=== PATIENT | female | born 1945 | race Caucasian/White ===

== ENCOUNTER 2018-05-05 13:15 | Emergency (ER) | payer MEDICARE ==
[2018-05-05 14:11] LABS: #Eosinphils 0.4 thou/uL (0.0-0.7); #Lymphocytes 1.4 thou/uL (1.20-3.40); #Monocytes 0.3 thou/uL (0.11-0.59); #Neutrophils 2.9 thou/uL (1.40-6.50); %Basophils 0.5 % (0.0-1.0); %Eosinophils 8.3 % (0.0-10.0); %Lymphocytes 27.7 % (21.0-51.0); %Monocytes 5.9 % (0.0-10.0); %Neutrophils 57.6 % (42.0-75.0); Mean Corpuscular HGB CONC 32.5 g/dL (32.0-36.0); Mean Corpuscular Hemoglobin 28.6 pg (27.0-31.0); Mean Platelet Volume 6.6 fL (7.4-10.4); Platelet Count 187 thou/uL (130-400); RBC Distribution Width 12.5 % (11.5-14.5); Red Blood Cell (RBC) Count 4.21 mill/uL (4.20-5.40); White Blood Cell (WBC) Count 5.1 thou/uL (4.8-10.8)
[2018-05-05 14:33] LABS: ALT (SGPT) 9 U/L (8-55); AST (SGOT) 18 U/L (5-34); Alkaline Phosphatase 105 U/L (40-150); Anion Gap 12 mmol/L (10-20); BUN (Urea Nitrogen) 12 mg/dL (9.8-20.1); Bilirubin, Total 0.8 mg/dL (0.2-1.2); CK (CPK) 47 U/L (29-168); Calc. Creatinine Clearance 0 mL/min (70-130); Calcium 9.2 mg/dL (7.8-10.44); Carbon Dioxide 27 mmol/L (23-31); Chloride 102 mmol/L (98-107); Estimated GFR-MDRD 62; Globulin 3.2 g/dL (2.4-3.5); Glucose 108 mg/dL (83-110); Lipase 7 U/L (8-78); Potassium 4.2 mmol/L (3.5-5.1); Protein, Total 7.2 g/dL (6.0-8.3); Sodium 137 mmol/L (136-145)
[2018-05-05] MEDS ORDERED: Pantoprazole 40 MG VIAL ONE (15:20)
[2018-05-05] MEDS ORDERED: Ondansetron PF 4 MG/2 ML Vial ONE (15:20)
[2018-05-05] MEDS ORDERED: Morphine 2 MG/ML SYRINGE ONE ×2 (15:22)
--- NOTE | 2018-05-05 15:25 | RAD ---
UPRIGHT PORTABLE CHEST ONE VIEW: HISTORY: A 72-year-old female with a history of epigastric abdominal pain. COMPARISON: 02/03/2017 FINDINGS: Monitor leads overly the chest. Heart size is within normal limits. Lungs are clear of acute proces s. IMPRESSION: No acute intrathoracic disease. POS: [facility]
--- NOTE | 2018-05-05 15:36 | CT ---
ABDOMEN AND PELVIC CT SCAN WITHOUT IV CONTRAST 05/05/19 HISTORY: 72-year-old female with history of pain, prior cholecystectomy, appendectomy and hysterectomy, epigas tric abdominal pain. The lung bases are clear. Postop cholecystectomy. The visualized liver, pancreas, spleen, adrenal gla nds are unremarkable as evaluated without IV contrast. No evidence for renal calculus or acute obs truction. Status post appendectomy and hysterectomy. No large or small bowel obstruction. No abscess or abnormal fluid collection. Multilevel lumbar spinal stenosis. IMPRESSION: No significant acute process in the abdomen or pelvis. Status post cholecystectomy, hysterectomy and appendectomy. No renal calculus or obstruction. No other acute process. POS: [facility]
== END 2018-05-05 19:22 | disposition home or self-care (01) ==
LOC: ERS 13:15
DX: R10.13 Epigastric pain (principal); J45.909 Unspecified asthma, uncomplicated; I10 Essential (primary) hypertension; R73.03 Prediabetes; F41.9 Anxiety disorder, unspecified; F32.9 Major depressive disorder, single episode, unspecified; Z86.73 Personal history of transient ischemic attack (TIA), and cerebral infarction without residual deficits
CPT/HCPCS: 36415; 71045; 74176; 80053; 82550; 83690; 84484; 85025; 93005; 96361; 96374; 96375; C9113; J2270; J2405

== ENCOUNTER 2018-07-19 11:18 | Emergency (ER) | payer MEDICARE ==
[2018-07-19 12:05] LABS: Bilirubin Negative (Negative); Blood, Urine Small (Negative); Clarity CLOUDY (Clear); Glucose, Urine (Dipstick) Negative (Negative); Leukocyte Large (Negative); Nitrite Positive (Negative); Protein, Urine (Dipstick) Negative (Neg-Trace); Urobilinogen 0.2 mg/dL (0.2-1.0)
[2018-07-19 12:06] LABS: Bacteria/HPF None Seen HPF (None Seen); Hyaline Casts/LPF 0-3 HYALINE CAST LPF (0-3 Hyaline); Pathc Cast-AUWi Flag 0.72 (0-2.49); RBC/HPF 0-3 HPF (0-3); Squamous Epithelial None Seen HPF (0-3)
[2018-07-19 12:11] LABS: Specific Gravity, Urine 1.004 (1.002-1.036)
--- NOTE | 2018-07-19 12:18 | RAD ---
PORTABLE CHEST: Date: 07/19/18 HISTORY: Cough. COMPARISON: 05/05/18 exam. FINDINGS: Heart size appears borderline to slightly enlarged. There are atherosclerotic changes of the aorta. T he lungs are clear of any infiltrative process. IMPRESSION: Borderline heart size. No acute findings. POS: [facility]
== END 2018-07-19 12:36 | disposition home or self-care (01) ==
LOC: ERS 11:18
DX: N39.0 Urinary tract infection, site not specified (principal); R05 Cough; J45.909 Unspecified asthma, uncomplicated; I10 Essential (primary) hypertension; F41.9 Anxiety disorder, unspecified; F32.9 Major depressive disorder, single episode, unspecified; Z79.82 Long term (current) use of aspirin; Z79.899 Other long term (current) drug therapy
CPT/HCPCS: 71045; 81003; 81015; 87077; 87086; 87186

== ENCOUNTER 2018-08-10 16:42 | Inpatient (IN) | payer MEDICARE ==
[2018-08-10] MEDS ORDERED: Ondansetron PF 4 MG/2 ML Vial ONE (16:50)
[2018-08-10] MEDS ORDERED: Acetaminophen 500 MG TAB ONE (19:23)
[2018-08-10 20:17] VITALS: BMI 23.1
--- NOTE | 2018-08-11 02:54 | HP ---
PRIMARY CARE DOCTOR: Maite Caraballo. CODE STATUS: Full code. TIME OF EVALUATION: 10:40 p.m. CHIEF COMPLAINT: Fever, chills. HISTORY OF PRESENT ILLNESS: This is a 73-year-old female patient with past medical history of hypertension, hyperlipidemia, CVA, chronic bronchitis, peripheral neuropathy, chronic hip pain, vitamin D deficiency, gait instability, hallucination, came to the hospital after having change in mental status, also worsening cough, shortness of breath, no clear triggers, no alleviating factors, symptoms were moderate. The patient is not improving. Symptoms have been present for the past few days. Sent to the hospital by caregiver. Today, symptoms were worse. REVIEW OF SYSTEMS: Unable to fully obtain, the patient is confused. She has stated I do not recall to my questions. KNOWN ALLERGIES: Chlorpromazine, codeine, iodine, oxycodone, Thorazine. REPORTED MEDICATIONS: 1. Gabapentin. 2. Amlodipine. 3. Ranitidine. 4. Aspirin. 5. Duloxetine. 6. Oxybutynin. 7. Ondansetron. 8. Atorvastatin. 9. Isosorbide. 10. Meloxicam. 11. Pantoprazole. 12. Trazodone. 13. Bactrim DS. 14. Macrobid. PAST MEDICAL HISTORY: As mentioned in HPI. PAST SURGICAL HISTORY: Uterine suspension, cervical surgery, hysterectomy, bladder suspension x3, knee surgery x2, breast biopsy, heart catheterization, varicose veins removal, spinal surgery, ankle surgery, and cataract. PSYCHIATRIC HISTORY: Anxiety and depression. FAMILY HISTORY: Reviewed, noncontributory for current presentation. SOCIAL HISTORY: No alcohol. No drugs. No smoking history. PHYSICAL EXAMINATION: VITAL SIGNS: On presentation, blood pressure 133/66, with heart rate 85, respiratory rate was 17, temperature 99.6. Pain was 3/10. Oxygen saturation was 95 on room air. GENERAL APPEARANCE: The patient is alert and is oriented. HEENT: Normal conjunctivae. Moist oral mucosa, anicteric. NECK: No JVD. RESPIRATORY: Bilateral air entry. No rales. No wheezing. Symmetric expansion. The patient has some rales on the right side. CARDIOVASCULAR: Normal rate, regular rhythm. No murmurs. No gallops. No edema. ABDOMEN: Soft. Normal bowel sounds. MUSCULOSKELETAL: Baseline range of motion and strength. No tenderness. SKIN: Warm and intact. No rash. No redness. Peripheral pulses are present. Capillary refill seems to be intact. NEUROLOGIC: No evidence of any new focal weakness. Baseline speech. Cranial nerves seem to be intact. PSYCHIATRIC: The patient is in good mood. No anxiety. Optimal judgment. LABORATORY DATA: Reviewed. The patient has white count 10.9, hemoglobin 15.1, MCV 88.5, and platelet count . Coagulation was not done. Chemistry; potassium was 3.7, sodium 138, chloride 98, carbon dioxide 29, anion gap 15, BUN 7, GFR was 63, with creatinine 0.8, glucose 127, and lactic acid was 1.9. LFTs were normal. Troponin 0.033. Urine was done, which was negative. Urine tox was done, which was negative. ASSESSMENT AND PLAN: The patient is placed in the hospital with following medical problems. 1. Right lower lobe pneumonia. The patient has fever, cough, increased sputum, confusion. We will place the patient on antibiotics, we will monitor, we will adjust the treatment as per the patient's clinical response, we will follow cultures, we will adjust treatment as per sensitivity. 2. Mildly elevated troponin, dgn-SD-tyxeukkun myocardial infarction type 2, secondary to underlying infection, we will trend troponins, monitor on tele, we will treat accordingly. 3. Acute encephalopathy. The patient has confusion that was worsened this morning and that is the reason why she was sent to hospital, could be due to underlying infection, we will monitor, we will give support as inpatient. We will treat the underlying condition. 4. Hyperlipidemia, reconcile home medications, low-cholesterol diet is advised. 5. Hypertension that is uncontrolled, the patient had an episode of blood pressure of 145 systolic, reconcile home medications, we will adjust treatment as needed. 6. Deep venous thrombosis prophylaxis. Job ID: [id number] [facility]
[2018-08-11 03:04] LABS: Troponin I Less than 0.010 ng/mL (< 0.028)
[2018-08-11] MEDS: PROVENTIL INHALER 6.7 G (200 INHALATIONS) INH PRN ×2 (03:50→09:00)
[2018-08-11 05:11] LABS: #Eosinphils 1.1 thou/uL (0.0-0.7); #Lymphocytes 0.9 thou/uL (1.20-3.40); #Monocytes 0.6 thou/uL (0.11-0.59); #Neutrophils 5.8 thou/uL (1.40-6.50); %Basophils 0.1 % (0.0-1.0); %Eosinophils 13.1 % (0.0-10.0); %Lymphocytes 11.2 % (21.0-51.0); %Monocytes 6.5 % (0.0-10.0); Hemoglobin 12.3 g/dL (12.0-16.0); Mean Corpuscular HGB CONC 31.9 g/dL (32.0-36.0); Mean Corpuscular Hemoglobin 28.9 pg (27.0-31.0); Mean Corpuscular Volume 90.6 fL (78.0-98.0); Mean Platelet Volume 7.3 fL (7.4-10.4); Platelet Count 154 thou/uL (130-400); RBC Distribution Width 12.7 % (11.5-14.5); Red Blood Cell (RBC) Count 4.26 mill/uL (4.20-5.40); White Blood Cell (WBC) Count 8.3 thou/uL (4.8-10.8)
[2018-08-11 05:34] LABS: Anion Gap 11 mmol/L (10-20); BUN (Urea Nitrogen) 11 mg/dL (9.8-20.1); Calc. Creatinine Clearance 51 mL/min (70-130); Calcium 8.7 mg/dL (7.8-10.44); Carbon Dioxide 29 mmol/L (23-31); Chloride 99 mmol/L (98-107); Estimated GFR-MDRD 52; Glucose 136 mg/dL (83-110); Potassium 3.2 mmol/L (3.5-5.1); Sodium 136 mmol/L (136-145)
[2018-08-11] MEDS: Enoxaparin Sodium 40 MG/0.4 ML SYRINGE SC SCH (09:42)
[2018-08-11] MEDS: Ondansetron PF 4 MG/2 ML Vial IVP PRN (09:43)
[2018-08-11] MEDS: Acetaminophen 325 MG TAB PO PRN ×2 (09:43→20:12)
[2018-08-11] MEDS ORDERED: Gabapentin 300 MG CAP PO SCH (10:15)
--- NOTE | 2018-08-11 11:30 | PQF ---
CLINICAL DOCUMENTATION IMPROVEMENT CLARIFICATION FORM: ICD-10 Updated PLEASE DO AN ADDENDUM TO THE PROGRESS NOTE WITH ANY DOCUMENTATION UPDATES OR ADDITIONS AND CARRY THROUGH TO DC SUMMARY. THANK YOU. DATE: 08/11/18 ATTN: DR. SANTIZO Please exercise your independent, professional judgment in responding to the clarification form. Clinical indicators are provided on the bottom of this form for your review Please check appropriate box(s): [ X ] Encephalopathy: Type: [ X ] Acute [ ] Subacute [ ] Chronic Etiology: [ ] Hypertensive [ X] Metabolic [X ] Toxic [ ] Hepatic with Coma [ ] Hepatic w/o Coma [ ] Hypoxic [ ] Septic [ ] Drug induced: [ ] Unspecified [ ] in the setting of underlying dementia [ ] Other (please specify) [ ] Transient Alteration of Awareness [ ] Other diagnosis [ ] Unable to determine In addition, please specify: Present on Admission (POA): [X ] Yes [ ] No [ ] Unable to determine For continuity of documentation, please document condition throughout progress notes and discharge summary. Thank You. CLINICAL INDICATORS - SIGNS / SYMPTOMS / LABS ER NOTE: "ALTERED MENTAL STATUS" H&P: "ACUTE ENCEPHALOPATHY" RISKS: PNEUMONIA TREATMENT: IV LEVAQUIN (STARTED 08/11) (This form is maintained as a part of the permanent medical record) 2014 [email or web address]. All Rights Reserved INO [email or web address] Office: [phone] [facility]
--- NOTE | 2018-08-11 14:38 | PDOC.PN ---
- Subjective Encounter Start Date: 08/11/18 Encounter Start Time: 14:36 Subjective: Feeling better. very hard of hearing. -: Denied fever and chest pain. Admitted to dysuria. - Objective Resuscitation Status - Order Detail: 08/10/18 22:35 Resuscitation Status Routine Resuscitation Status: FULL: Full Resuscitation Vital Signs & Weight: Vital Signs (12 hours) Temp Pulse Resp BP Pulse Ox 08/11/18 12:39 98.5 F 76 16 150/70 H 99 08/11/18 09:00 59 L 16 08/11/18 08:25 94 L 08/11/18 07:25 98.3 F 57 L 12 131/58 L 94 L 08/11/18 03:50 64 16 94 L Weight Weight 147 lb 4.8 oz I&O: 08/10/18 08/11/18 08/12/18 06:59 06:59 06:59 Intake Total 600 Balance 600 Result Diagrams: 08/11/18 04:34 08/11/18 04:34 Phys Exam - Physical Examination afebrile. HEENT: PERRLA, moist MMs Neck: no JVD, supple Respiratory: no rhonchi fair air entry. Decreased at right base with transmitted sound. Cardiovascular: RRR Gastrointestinal: soft, non-tender, no distention, positive bowel sounds Musculoskeletal: no edema, pulses present Neurological: moves all 4 limbs Cranial nerves are intact. hard of hearing limited assessment Dx/Plan (1) Acute metabolic encephalopathy Code(s): G93.41 - METABOLIC ENCEPHALOPATHY Status: Acute Comment: Present on admission. (2) Pneumonia Code(s): J18.9 - PNEUMONIA, UNSPECIFIED ORGANISM Status: Acute Qualifiers: Laterality: right Lung location: lower lobe of lung (3) Hypokalemia Code(s): E87.6 - HYPOKALEMIA Status: Acute (4) CAD (coronary artery disease) Code(s): I25.10 - ATHSCL HEART DISEASE OF [place] CORONARY ARTERY W/O ANG PCTRS Status: Chronic (5) Dyslipidemia Code(s): E78.5 - HYPERLIPIDEMIA, UNSPECIFIED Status: Chronic (6) GERD (gastroesophageal reflux disease) Code(s): K21.9 - GASTRO-ESOPHAGEAL REFLUX DISEASE WITHOUT ESOPHAGITIS Status: Chronic (7) Hypertension Code(s): I10 - ESSENTIAL (PRIMARY) HYPERTENSION Status: Chronic (8) Peripheral neuropathy Code(s): G62.9 - POLYNEUROPATHY, UNSPECIFIED Status: Chronic - Plan Continue antibiotic. -: Replete serum potassium. get serum magnesium -: Restart neurontin and imdur. -: get UA with reflex to culture. -: Follow troponin * .
[2018-08-11 15:25] LABS: Troponin I Less than 0.010 ng/mL (< 0.028)
[2018-08-11 15:53] LABS: Bilirubin Negative (Negative); Blood, Urine Negative (Negative); Clarity CLEAR (Clear); Glucose, Urine (Dipstick) Negative (Negative); Leukocyte Trace (Negative); Nitrite Negative (Negative); Protein, Urine (Dipstick) Negative (Neg-Trace); Specific Gravity, Urine 1.014 (1.002-1.036)
[2018-08-11 15:56] LABS: Bacteria/HPF None Seen HPF (None Seen); Hyaline Casts/LPF 0-3 HYALINE CAST LPF (0-3 Hyaline); Pathc Cast-AUWi Flag 0.54 (0-2.49); Squamous Epithelial 0-3 HPF (0-3)
[2018-08-11 15:58] LABS: Yeast-AUWi Flag 36.1 (0-25.0)
[2018-08-11] MEDS: Potassium Chloride 20 MEQ TAB PO SCH ×2 (16:17→20:12)
[2018-08-11 16:19] LABS: RBC/HPF 0-3 HPF (0-3); Yeast-All Forms None Seen HPF (None Seen)
[2018-08-11 16:20] LABS: Urine Culture Reflex Yes Yes
[2018-08-11] MEDS: Atorvastatin Calcium 40 MG TAB PO SCH (20:12)
[2018-08-11] MEDS: Gabapentin 300 MG CAP PO SCH (20:12)
[2018-08-11] MEDS: Oxybutynin 5 MG TAB PO SCH (20:13)
[2018-08-11] MEDS: Ondansetron ODT 4 MG TAB PO PRN (21:22)
[2018-08-12] MEDS: Acetaminophen 325 MG TAB PO PRN ×3 (00:27→22:58)
[2018-08-12 07:02] LABS: Anion Gap 14 mmol/L (10-20); BUN (Urea Nitrogen) 12 mg/dL (9.8-20.1); Calc. Creatinine Clearance 63 mL/min (70-130); Calcium 8.9 mg/dL (7.8-10.44); Carbon Dioxide 24 mmol/L (23-31); Chloride 106 mmol/L (98-107); Estimated GFR-MDRD 67; Glucose 97 mg/dL (83-110); Magnesium 2.1 mg/dL (1.6-2.6); Potassium 4.5 mmol/L (3.5-5.1); Sodium 139 mmol/L (136-145)
[2018-08-12] MEDS: Ondansetron PF 4 MG/2 ML Vial IVP PRN (08:58)
[2018-08-12] MEDS: Aspirin 81 mg Enteric Coated Tablet PO SCH (09:03)
[2018-08-12] MEDS: Oxybutynin 5 MG TAB PO SCH ×2 (09:04→20:02)
[2018-08-12] MEDS: Gabapentin 300 MG CAP PO SCH ×2 (09:04→20:01)
[2018-08-12] MEDS: Enoxaparin Sodium 40 MG/0.4 ML SYRINGE SC SCH (09:05)
--- NOTE | 2018-08-12 12:41 | PDOC.PN ---
- Subjective Encounter Start Date: 08/12/18 Encounter Start Time: 12:39 Subjective: feeling better. Reportedly recurrent falls at home. taking fentanyl patch -: for severe neuropathy and pain. denied fever, SOB. coughing up sputum - Objective Resuscitation Status - Order Detail: 08/10/18 22:35 Resuscitation Status Routine Resuscitation Status: FULL: Full Resuscitation Vital Signs & Weight: Vital Signs (12 hours) Temp Pulse Resp BP Pulse Ox 08/12/18 11:52 98.1 F 78 18 139/75 98 08/12/18 10:15 77 20 155/79 H 98 08/12/18 08:00 95 08/12/18 07:17 98.5 F 63 18 148/76 H 95 08/12/18 04:00 98.0 F 58 L 18 149/79 H 97 Weight Admit Weight 147 lb 4.8 oz Weight 147 lb 4.8 oz I&O: 08/11/18 08/12/18 08/13/18 06:59 06:59 06:59 Intake Total 1600 Balance 1600 Result Diagrams: 08/11/18 04:34 08/12/18 05:25 Phys Exam - Physical Examination Constitutional: NAD afebrile. No distress Neck: no JVD, supple Respiratory: no wheezing, no rhonchi fair air entry bilaterally with few adventitial sound right base posterior Cardiovascular: RRR Gastrointestinal: soft, no distention, positive bowel sounds Musculoskeletal: no edema, pulses present Neurological: non-focal, moves all 4 limbs Psychiatric: A&O x 3 Deviation from normal: emotionally labile Dx/Plan (1) Pneumonia Code(s): J18.9 - PNEUMONIA, UNSPECIFIED ORGANISM Status: Acute Qualifiers: Laterality: right Lung location: lower lobe of lung (2) Acute metabolic encephalopathy Code(s): G93.41 - METABOLIC ENCEPHALOPATHY Status: Acute Comment: Present on admission. (3) Hypokalemia Code(s): E87.6 - HYPOKALEMIA Status: Acute (4) CAD (coronary artery disease) Code(s): I25.10 - ATHSCL HEART DISEASE OF [place] CORONARY ARTERY W/O ANG PCTRS Status: Chronic (5) Dyslipidemia Code(s): E78.5 - HYPERLIPIDEMIA, UNSPECIFIED Status: Chronic (6) GERD (gastroesophageal reflux disease) Code(s): K21.9 - GASTRO-ESOPHAGEAL REFLUX DISEASE WITHOUT ESOPHAGITIS Status: Chronic (7) Hypertension Code(s): I10 - ESSENTIAL (PRIMARY) HYPERTENSION Status: Chronic (8) Peripheral neuropathy Code(s): G62.9 - POLYNEUROPATHY, UNSPECIFIED Status: Chronic (9) Sepsis Code(s): A41.9 - SEPSIS, UNSPECIFIED ORGANISM Status: Acute Comment: Present on admission. Resolved. (10) Anxiety and depression Code(s): F41.9 - ANXIETY DISORDER, UNSPECIFIED; F32.9 - MAJOR DEPRESSIVE DISORDER, SINGLE EPISODE, UNSPECIFIED Status: Chronic (11) Physical deconditioning Code(s): R53.81 - OTHER MALAISE Status: Acute (12) Recurrent falls Code(s): R29.6 - REPEATED FALLS Status: Acute - Plan Restart fentanyl patch and cymbalta -: Continue IV antibiotics. -: consult PT/OT. -: increase activity -: Consult case mgt to help with discharge planning * .
[2018-08-12] MEDS: Atorvastatin Calcium 40 MG TAB PO SCH (20:01)
[2018-08-13] MEDS: Aspirin 81 mg Enteric Coated Tablet PO SCH (08:18)
[2018-08-13] MEDS: Gabapentin 300 MG CAP PO SCH (08:18)
[2018-08-13] MEDS: Oxybutynin 5 MG TAB PO SCH (08:18)
[2018-08-13] MEDS: Enoxaparin Sodium 40 MG/0.4 ML SYRINGE SC SCH (08:18)
[2018-08-13] MEDS ORDERED: DULoxetine 30 MG CAP PO SCH (09:00)
[2018-08-13 11:34] VITALS: BP 153/83; TEMP 98.7
--- NOTE | 2018-08-13 11:45 | DIS ---
DATE OF ADMISSION: 08/11/2018 DATE OF DISCHARGE: 08/13/2018 DISCHARGE DIAGNOSES: 1. Right lower lobe pneumonia. 2. Sepsis from above. 3. Acute encephalopathy. 4. Chronic obstructive pulmonary disease with acute exacerbation, present on admission. 5. Hypertension. 6. Hyperlipidemia. 7. Peripheral neuropathy. 8. Physical deconditioning. 9. Hypokalemia. 10. History of coronary artery disease. 11. Gait instability. 12. History of recurrent falls. 13. Gastroesophageal reflux disease. HOSPITAL COURSE: A 73-year-old female with history of COPD, severe peripheral neuropathy associated with gait instability and recurrent falls, who was admitted due to acute mental status change of hallucination and confusion associated with worsening cough and shortness of breath. The patient was febrile on presentation with a temperature of 102. Chest x-ray showed right lower lobe infiltrate. Impression of acute encephalopathy and sepsis from right lower lobe pneumonia was made and the patient was started on appropriate antibiotic therapy with IV Levaquin. She also was treated with IV fluids and other treatments with improvement in condition. The patient never really required oxygen supplementation. Shortness of breath and hallucination and mental status improved and patient was back to baseline. Given history of recurrent falls and gait instability, the patient was felt to be in need of home health, PT and RN and this was arranged. PHYSICAL EXAMINATION: VITAL SIGNS: Temperature 98.8, pulse 60, respiratory rate 19, and SpO2 99% on room air, and blood pressure 163/83. GENERAL: Elderly female, in no obvious distress. Afebrile, anicteric, and acyanotic. HEENT: Normocephalic and atraumatic. Pupils are equal and reacting to light. Oral mucosa is moist. CARDIOVASCULAR: Regular rhythm and rate. Normal. heart sounds 1 and 2. RESPIRATORY: Fair air entry bilaterally with some transmitted sounds. No obvious crackle or rhonchi was appreciated. There is no use of accessory muscles. GI: Abdomen is full, soft, nontender, and nondistended with normal bowel sounds. EXTREMITIES: Grossly normal looking, atraumatic with no obvious edema or erythema. NEUROLOGIC: Conscious and alert, oriented x3 with appropriate mental status. Memory lapse is noted. The patient is ambulant with slow gait. She however required a walker. DISCHARGE CONDITION: Improved. DISCHARGE FOLLOWUP: The patient is to follow with PCP in 1 week. DISCHARGE MEDICATIONS: 1. Amlodipine 5 mg p.o. daily. 2. Aspirin 81 mg p.o. daily. 3. Lipitor 40 mg p.o. daily at bedtime. 4. Cymbalta 30 mg p.o. daily. 5. Fluticasone salmeterol (Advair) 1 to 2 puffs inhalation b.i.d. 6. Gabapentin 600 mg p.o. b.i.d. 7. Oxybutynin chloride 5 mg p.o. b.i.d. 8. Protonix 40 mg p.o. b.i.d. 9. Trazodone 75 mg p.o. at bedtime. 10. Fentanyl patch 25 mcg every three days. 11. Isosorbide mononitrate 30 mg p.o. daily. 12. Levofloxacin 750 mg p.o. daily for 5 days. Discharge took 38 minutes. Job ID: [id number]
[2018-08-13] MEDS ORDERED: Amlodipine 5 MG TAB PO SCH (12:30)
[2018-08-13] MEDS: Ondansetron ODT 4 MG TAB PO PRN (13:02)
[2018-08-14] MEDS ORDERED: Amlodipine 5 MG TAB PO SCH (09:00)
== END 2018-08-13 14:34 | disposition home health service (06) | DRG 871 ==
LOC: ERS 16:42 → 2SW 20:00 → OBSVTOIN 08-11 00:08 → T4-A 08-11 14:15
PROVIDERS: ADMIT Emergency Medicine; ATTEND Emergency Medicine
DX: A41.9 Sepsis, unspecified organism (principal); I21.A1 Myocardial infarction type 2; G93.41 Metabolic encephalopathy; J18.9 Pneumonia, unspecified organism; E78.5 Hyperlipidemia, unspecified; I10 Essential (primary) hypertension; J42 Unspecified chronic bronchitis; G62.9 Polyneuropathy, unspecified; G89.29 Other chronic pain; M25.559 Pain in unspecified hip; E55.9 Vitamin D deficiency, unspecified; K21.9 Gastro-esophageal reflux disease without esophagitis; F41.9 Anxiety disorder, unspecified; F32.9 Major depressive disorder, single episode, unspecified; R29.6 Repeated falls; E87.6 Hypokalemia; I25.10 Atherosclerotic heart disease of native coronary artery without angina pectoris; M54.2 Cervicalgia; M25.511 Pain in right shoulder; Z79.1 Long term (current) use of non-steroidal anti-inflammatories (NSAID); Z86.73 Personal history of transient ischemic attack (TIA), and cerebral infarction without residual deficits; Z79.82 Long term (current) use of aspirin; Z79.899 Other long term (current) drug therapy; Z90.710 Acquired absence of both cervix and uterus
CPT/HCPCS: 36415; 80048; 81001; 83605; 83735; 84484; 85025; 87077; 87086; 87186; 87804; 96374; J1650; J1956; J2405; Q0162

== ENCOUNTER 2019-02-07 09:05 | Outpatient (CLI) | payer MEDICARE ==
--- NOTE | 2019-02-07 12:25 | CT ---
CT ABDOMEN AND PELVIS WITH CONTRAST: HISTORY: Change in bowel habits and weight loss. COMPARISON: CT abdomen and pelvis without contrast 05/05/2018. FINDINGS: The lung bases are clear. No pericardial effusion. Prior cholecystectomy. The liver and spleen are unremarkable. 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 Normal proximal small bowel rotation. No liver mass. No aneurysmal dilatation of the aorta which has moderate atherosclerotic plaque. 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 The narrowing was approximately 50-75% narrowing. The superior mesenteric artery is patent. Mild hyperenhancement of the mucosa, urinary bladder, which is thickened suggesting cystitis. No abn ormal mass is appreciated. No dilated loops of large or small bowel. No hydronephrosis. No abnormal renal enhancement. Adrena l gland is unremarkable. Moderate to severe facet arthrosis of L2-L5. Narrowing of the intraspinous space of L2-L5 with sclerosis and subcortical cyst formation. Severe bilateral hip degenerative changes, slightly worse on the left. IMPRESSION: 1. 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 2. Mucosal hyperenhancement of the urinary bladder which is thickened suggesting cystitis. 3. 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 4. Pancreatic body parenchymal atrophy can be seen with prior bouts of pancreatitis. POS: [facility]
== END 2019-02-07 09:06 | disposition home or self-care (01) ==
LOC: CT 09:05
PROVIDERS: ATTEND Physician Assistant Medical
DX: R19.4 Change in bowel habit (principal); R63.4 Abnormal weight loss; R10.9 Unspecified abdominal pain; R11.2 Nausea with vomiting, unspecified; I77.4 Celiac artery compression syndrome; N32.89 Other specified disorders of bladder; I72.8 Aneurysm of other specified arteries
CPT/HCPCS: 74177; 82565

== ENCOUNTER 2019-02-28 08:49 | Outpatient (CLI) | payer MEDICARE ==
--- NOTE | 2019-02-28 13:44 | CT ---
CTA ABDOMEN WITH IV CONTRAST AND 3D POST PROCESSING: HISTORY: Epigastric pain and irregular bowels. CORRELATION: CT abdomen and pelvis from 02/07/2019. FINDINGS: There are vascular calcifications without evidence of aneurysmal dilatation of the abdominal aorta. N o interval flap is seen in the aortic lumen to suggest dissection. There is moderate stenosis at the origin of the right renal artery. No significant stenosis is seen in the origin of the left renal art jodie. There is good flow noted in the celiac axis, SMA and GURMEET. There is 30% to 40% stenosis of the proxima l celiac axis. 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 The remainder of the findings are similar to those seen on 02/07/2019. IMPRESSION: 1. 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 2. Moderate stenosis at the origin of the right renal artery. POS: [facility]
== END 2019-02-28 08:50 | disposition home or self-care (01) ==
LOC: CT 08:49
PROVIDERS: ATTEND Physician Assistant Medical
DX: R10.9 Unspecified abdominal pain (principal); R93.3 Abnormal findings on diagnostic imaging of other parts of digestive tract; R63.4 Abnormal weight loss; R11.0 Nausea; R19.4 Change in bowel habit; I70.1 Atherosclerosis of renal artery; I77.4 Celiac artery compression syndrome
CPT/HCPCS: 74175; 82565

== ENCOUNTER 2019-07-11 09:16 | Outpatient (CLI) | payer MEDICARE ==
--- NOTE | 2019-07-11 10:09 | MMO ---
Bilateral MAMMO Bilat Screen [facility]. CLINICAL HISTORY: Patient is 73 years old and is seen for screening. The patient has no family history of breast cancer. The patient has no personal history of cancer. The patient has a history of left Excisional Biopsy more than 10 years ago - benign and left needle biopsy more than 10 years ago - benign. VIEWS: The views performed were: bilateral craniocaudal with tomosynthesis and bilateral mediolateral oblique with tomosynthesis. FILMS COMPARED: The present examination has been compared to prior imaging studies performed at [facility] on 08/29/2015, and at [facility] on 01/26/2005 and 08/04/2009. This study has been interpreted with the assistance of computer-aided detection. MAMMOGRAM FINDINGS: Nodularity is stable. There are no suspicious masses, suspicious calcifications, or new areas of architectural distortion. IMPRESSION: THERE IS NO MAMMOGRAPHIC EVIDENCE OF MALIGNANCY. A ROUTINE FOLLOW-UP MAMMOGRAM IN 1 YEAR IS RECOMMENDED. THE RESULTS OF THIS EXAM WERE SENT TO THE PATIENT. ACR BI-RADS Category 2 - Benign finding MAMMOGRAPHY NOTE: 1. A negative mammogram report should not delay a biopsy if a dominant of clinically suspicious mass is present. 2. Approximately 10% to 15% of breast cancers are not detected by mammography. 3. Adenosis and dense breasts may obscure an underlying neoplasm. Reported by: ED PAREDES MD Electonically Signed: [id number]
== END 2019-07-11 09:17 | disposition home or self-care (01) ==
LOC: BICMAMMO 09:16
PROVIDERS: ATTEND Family Medicine
DX: Z12.31 Encounter for screening mammogram for malignant neoplasm of breast (principal); Z91.89 Other specified personal risk factors, not elsewhere classified
CPT/HCPCS: 77063; 77067

== ENCOUNTER 2020-10-01 09:34 | Outpatient (CLI) | payer MEDICARE | END 2020-10-01 09:35 | disposition home or self-care (01) | LOC: BICMAMMO 09:34 | PROVIDERS: ATTEND Family Medicine | DX: Z12.31 Encounter for screening mammogram for malignant neoplasm of breast (principal); Z91.89 Other specified personal risk factors, not elsewhere classified | CPT/HCPCS: 77063; 77067 ==

== ENCOUNTER 2021-01-21 19:05 | Inpatient (IN) | payer MEDICARE ==
[2021-01-21 19:46] LABS: #Basophils 0.1 thou/uL (0.0-0.2); #Eosinphils 0.4 thou/uL (0.0-0.7); #Lymphocytes 2.4 thou/uL (1.20-3.40); #Monocytes 0.8 thou/uL (0.11-0.59); #Neutrophils 4.4 thou/uL (1.40-6.50); %Basophils 0.7 % (0.0-1.0); %Eosinophils 4.4 % (0.0-10.0); %Lymphocytes 29.6 % (21.0-51.0); %Monocytes 9.9 % (0.0-10.0); %Neutrophils 55.4 % (42.0-75.0); Hemoglobin 12.6 g/dL (12.0-16.0); Mean Corpuscular HGB CONC 33.2 g/dL (32.0-36.0); Mean Corpuscular Hemoglobin 29.6 pg (27.0-31.0); Mean Corpuscular Volume 89.4 fL (78.0-98.0); Mean Platelet Volume 6.7 fL (7.4-10.4); Platelet Count 269 thou/uL (130-400); RBC Distribution Width 12.7 % (11.5-14.5); Red Blood Cell (RBC) Count 4.26 mill/uL (4.20-5.40); White Blood Cell (WBC) Count 7.9 thou/uL (4.8-10.8)
[2021-01-21 20:03] LABS: ALT (SGPT) 7 U/L (8-55); AST (SGOT) 12 U/L (5-34); Albumin 4.3 g/dL (3.4-4.8); Alkaline Phosphatase 104 U/L (40-110); Anion Gap 14 mmol/L (10-20); BUN (Urea Nitrogen) 13 mg/dL (9.8-20.1); Bilirubin, Total 1.1 mg/dL (0.2-1.2); Calc. Creatinine Clearance 0 mL/min (70-130); Calcium 9.3 mg/dL (7.8-10.44); Carbon Dioxide 29 mmol/L (23-31); Chloride 99 mmol/L (98-107); Globulin 2.9 g/dL (2.4-3.5); Glucose 111 mg/dL (83-110); Magnesium 1.6 mg/dL (1.6-2.6); Potassium 3.2 mmol/L (3.5-5.1); Protein, Total 7.2 g/dL (5.8-8.1); Sodium 139 mmol/L (136-145)
[2021-01-21] MEDS ORDERED: Magnesium 2 GM/50 ML BAG (IN WATER) ONE (20:35)
[2021-01-21] MEDS ORDERED: Potassium Chloride 20 MEQ TAB ONE (20:35)
[2021-01-21] MEDS ORDERED: Ondansetron ODT 4 MG TAB PO PRN (22:55)
[2021-01-21] MEDS ORDERED: Acetaminophen 325 MG TAB PO PRN (22:55)
[2021-01-21] MEDS ORDERED: Metoprolol Tartrate 25 MG TAB PO SCH (23:15)
[2021-01-22] MEDS ORDERED: Metoprolol Tartrate 25 MG TAB ONE ×2 (00:01→09:57)
[2021-01-22 00:21] LABS: Troponin I Less than 0.010 ng/mL (< 0.028)
[2021-01-22 03:21] LABS: SARS-CoV-2 NAA Rapid Test Not Detected (NotDetected)
[2021-01-22 03:35] LABS: #Eosinphils 0.5 thou/uL (0.0-0.7); #Lymphocytes 2.1 thou/uL (1.20-3.40); #Monocytes 0.5 thou/uL (0.11-0.59); #Neutrophils 2.6 thou/uL (1.40-6.50); %Basophils 0.5 % (0.0-1.0); %Eosinophils 8.1 % (0.0-10.0); %Lymphocytes 37.4 % (21.0-51.0); %Monocytes 8.4 % (0.0-10.0); %Neutrophils 45.7 % (42.0-75.0); Hemoglobin 11.8 g/dL (12.0-16.0); Mean Corpuscular HGB CONC 32.6 g/dL (32.0-36.0); Mean Corpuscular Hemoglobin 29.3 pg (27.0-31.0); Mean Corpuscular Volume 89.7 fL (78.0-98.0); Mean Platelet Volume 7.3 fL (7.4-10.4); Platelet Count 244 thou/uL (130-400); RBC Distribution Width 12.8 % (11.5-14.5); Red Blood Cell (RBC) Count 4.04 mill/uL (4.20-5.40); White Blood Cell (WBC) Count 5.6 thou/uL (4.8-10.8)
[2021-01-22 03:53] LABS: Anion Gap 12 mmol/L (10-20); BUN (Urea Nitrogen) 12 mg/dL (9.8-20.1); Calc. Creatinine Clearance 63 mL/min (70-130); Calcium 8.8 mg/dL (7.8-10.44); Carbon Dioxide 29 mmol/L (23-31); Chloride 102 mmol/L (98-107); Glucose 111 mg/dL (83-110); Potassium 3.2 mmol/L (3.5-5.1); Sodium 140 mmol/L (136-145)
[2021-01-22 03:59] LABS: Troponin I Less than 0.010 ng/mL (< 0.028)
[2021-01-22] MEDS: Apixaban 5 MG TAB PO SCH ×2 (10:19→21:42)
[2021-01-22] MEDS: Metoprolol Tartrate 25 MG TAB PO SCH ×2 (10:19→21:43)
[2021-01-22] MEDS ORDERED: Potassium Chloride 20 MEQ TAB PO SCH (13:15)
[2021-01-22 14:06] LABS: Magnesium 1.8 mg/dL (1.6-2.6)
[2021-01-22] MEDS ORDERED: traMADol HCl 50 MG TAB PO PRN (18:34)
[2021-01-22] MEDS: Gabapentin 300 MG CAP PO SCH (21:41)
[2021-01-22] MEDS: Atorvastatin Calcium 40 MG TAB PO SCH (21:42)
[2021-01-22] MEDS: traZODone HCl 50 MG TAB PO SCH (21:42)
[2021-01-23 05:28] LABS: #Eosinphils 0.6 thou/uL (0.0-0.7); #Lymphocytes 2.1 thou/uL (1.20-3.40); #Monocytes 0.7 thou/uL (0.11-0.59); #Neutrophils 4.3 thou/uL (1.40-6.50); %Basophils 0.4 % (0.0-1.0); %Eosinophils 7.8 % (0.0-10.0); %Lymphocytes 27.3 % (21.0-51.0); %Monocytes 8.6 % (0.0-10.0); Hemoglobin 12.3 g/dL (12.0-16.0); Mean Corpuscular HGB CONC 32.8 g/dL (32.0-36.0); Mean Corpuscular Hemoglobin 29.8 pg (27.0-31.0); Mean Corpuscular Volume 91.1 fL (78.0-98.0); Mean Platelet Volume 7.3 fL (7.4-10.4); Platelet Count 235 thou/uL (130-400); RBC Distribution Width 12.9 % (11.5-14.5); Red Blood Cell (RBC) Count 4.11 mill/uL (4.20-5.40); White Blood Cell (WBC) Count 7.8 thou/uL (4.8-10.8)
[2021-01-23 05:46] LABS: Anion Gap 11 mmol/L (10-20); BUN (Urea Nitrogen) 12 mg/dL (9.8-20.1); Calc. Creatinine Clearance 63 mL/min (70-130); Calcium 9.2 mg/dL (7.8-10.44); Carbon Dioxide 25 mmol/L (23-31); Chloride 107 mmol/L (98-107); Glucose 111 mg/dL (83-110); Sodium 139 mmol/L (136-145)
[2021-01-23] MEDS: Gabapentin 300 MG CAP PO SCH ×2 (08:59→21:18)
[2021-01-23] MEDS: Apixaban 5 MG TAB PO SCH ×2 (08:59→21:18)
[2021-01-23] MEDS: DULoxetine 30 MG CAP PO SCH (08:59)
[2021-01-23] MEDS: Isosorbide Dinitrate 20 MG TAB PO SCH (09:00)
[2021-01-23] MEDS: Furosemide 20 MG TAB PO SCH (09:00)
[2021-01-23] MEDS: Ezetimibe 10 MG TAB PO SCH (09:01)
[2021-01-23] MEDS: Aspirin 81 mg Enteric Coated Tablet PO SCH (09:01)
[2021-01-23] MEDS: Aripiprazole 10 MG TAB PO SCH (09:01)
[2021-01-23] MEDS: Amlodipine 5 MG TAB PO SCH (09:01)
[2021-01-23] MEDS: Polyethylene Glycol 3350 17 GM Packet PO SCH (09:02)
[2021-01-23] MEDS: Metoprolol Tartrate 25 MG TAB PO SCH ×2 (09:02→21:19)
[2021-01-23 14:46] LABS: Magnesium 1.6 mg/dL (1.6-2.6)
[2021-01-23] MEDS: traZODone HCl 50 MG TAB PO SCH (21:19)
[2021-01-23] MEDS: Atorvastatin Calcium 40 MG TAB PO SCH (21:19)
[2021-01-24] MEDS: DULoxetine 30 MG CAP PO SCH (08:14)
[2021-01-24] MEDS: Polyethylene Glycol 3350 17 GM Packet PO SCH (08:14)
[2021-01-24] MEDS: Apixaban 5 MG TAB PO SCH ×2 (08:15→20:59)
[2021-01-24] MEDS: Aspirin 81 mg Enteric Coated Tablet PO SCH (08:15)
[2021-01-24] MEDS: Gabapentin 300 MG CAP PO SCH ×2 (08:15→20:59)
[2021-01-24] MEDS: Aripiprazole 10 MG TAB PO SCH (08:15)
[2021-01-24] MEDS: Ezetimibe 10 MG TAB PO SCH (08:17)
[2021-01-24] MEDS ORDERED: Loratadine 10 MG TAB PO SCH (08:45)
[2021-01-24] MEDS ORDERED: Ferrous Sulfate 325 MG TAB PO SCH (09:00)
[2021-01-24] MEDS: Metoprolol Tartrate 25 MG TAB PO SCH ×2 (10:04→21:01)
[2021-01-24] MEDS: Ferrous Sulfate 325 MG TAB PO SCH (10:04)
[2021-01-24] MEDS: Isosorbide Dinitrate 20 MG TAB PO SCH (10:04)
[2021-01-24] MEDS: Furosemide 20 MG TAB PO SCH (10:07)
[2021-01-24] MEDS: Amlodipine 5 MG TAB PO SCH (10:07)
[2021-01-24] MEDS: Atorvastatin Calcium 40 MG TAB PO SCH (20:59)
[2021-01-24] MEDS: traZODone HCl 50 MG TAB PO SCH (21:01)
[2021-01-25] MEDS: Ferrous Sulfate 325 MG TAB PO SCH (09:30)
[2021-01-25] MEDS: DULoxetine 30 MG CAP PO SCH (09:30)
[2021-01-25] MEDS: Apixaban 5 MG TAB PO SCH ×2 (09:30→20:04)
[2021-01-25] MEDS: Aspirin 81 mg Enteric Coated Tablet PO SCH (09:31)
[2021-01-25] MEDS: Ezetimibe 10 MG TAB PO SCH (09:31)
[2021-01-25] MEDS: Amlodipine 5 MG TAB PO SCH (09:31)
[2021-01-25] MEDS: Metoprolol Tartrate 25 MG TAB PO SCH ×2 (09:31→20:05)
[2021-01-25] MEDS: Aripiprazole 10 MG TAB PO SCH (09:31)
[2021-01-25] MEDS: Gabapentin 300 MG CAP PO SCH ×2 (09:31→20:04)
[2021-01-25] MEDS: Furosemide 20 MG TAB PO SCH (09:31)
[2021-01-25] MEDS: Isosorbide Dinitrate 20 MG TAB PO SCH (09:31)
[2021-01-25] MEDS: Polyethylene Glycol 3350 17 GM Packet PO SCH (09:32)
[2021-01-25] MEDS: traZODone HCl 50 MG TAB PO SCH (20:04)
[2021-01-25] MEDS: Atorvastatin Calcium 40 MG TAB PO SCH (20:04)
[2021-01-25] MEDS: Donepezil HCl 5 MG TAB PO SCH (20:05)
[2021-01-26] MEDS: Ezetimibe 10 MG TAB PO SCH (09:08)
[2021-01-26] MEDS: Isosorbide Dinitrate 20 MG TAB PO SCH (09:08)
[2021-01-26] MEDS: Gabapentin 300 MG CAP PO SCH ×2 (09:09→20:35)
[2021-01-26] MEDS: Apixaban 5 MG TAB PO SCH ×2 (09:10→20:35)
[2021-01-26] MEDS: Ferrous Sulfate 325 MG TAB PO SCH (09:10)
[2021-01-26] MEDS: Aripiprazole 10 MG TAB PO SCH (09:10)
[2021-01-26] MEDS: Aspirin 81 mg Enteric Coated Tablet PO SCH (09:10)
[2021-01-26] MEDS: Furosemide 20 MG TAB PO SCH (09:10)
[2021-01-26] MEDS: DULoxetine 30 MG CAP PO SCH (09:10)
[2021-01-26] MEDS: Amlodipine 5 MG TAB PO SCH (09:10)
[2021-01-26] MEDS: Metoprolol Tartrate 25 MG TAB PO SCH ×2 (09:10→20:35)
[2021-01-26] MEDS: Polyethylene Glycol 3350 17 GM Packet PO SCH (09:11)
[2021-01-26] MEDS: traZODone HCl 50 MG TAB PO SCH (20:35)
[2021-01-26] MEDS: Donepezil HCl 5 MG TAB PO SCH (20:35)
[2021-01-26] MEDS: Atorvastatin Calcium 40 MG TAB PO SCH (20:35)
[2021-01-27 05:15] VITALS: BMI 23.6
[2021-01-27] MEDS: Polyethylene Glycol 3350 17 GM Packet PO SCH (09:18)
[2021-01-27] MEDS: Isosorbide Dinitrate 20 MG TAB PO SCH (09:18)
[2021-01-27] MEDS: Amlodipine 5 MG TAB PO SCH (09:18)
[2021-01-27] MEDS: Aspirin 81 mg Enteric Coated Tablet PO SCH (09:18)
[2021-01-27] MEDS: Metoprolol Tartrate 25 MG TAB PO SCH ×2 (09:19→20:18)
[2021-01-27] MEDS: Gabapentin 300 MG CAP PO SCH ×2 (09:19→20:19)
[2021-01-27] MEDS: Apixaban 5 MG TAB PO SCH ×2 (09:19→20:18)
[2021-01-27] MEDS: Ferrous Sulfate 325 MG TAB PO SCH (09:19)
[2021-01-27] MEDS: DULoxetine 30 MG CAP PO SCH (09:19)
[2021-01-27] MEDS: Aripiprazole 10 MG TAB PO SCH (09:20)
[2021-01-27] MEDS: Furosemide 20 MG TAB PO SCH (09:20)
[2021-01-27] MEDS: Ezetimibe 10 MG TAB PO SCH (09:20)
[2021-01-27] MEDS: traZODone HCl 50 MG TAB PO SCH (20:17)
[2021-01-27] MEDS: Docusate 100 MG CAP PO PRN (20:17)
[2021-01-27] MEDS: Atorvastatin Calcium 40 MG TAB PO SCH (20:18)
[2021-01-27] MEDS: Donepezil HCl 5 MG TAB PO SCH (20:18)
[2021-01-28] MEDS: Metoprolol Tartrate 25 MG TAB PO SCH ×2 (08:21→20:33)
[2021-01-28] MEDS: DULoxetine 30 MG CAP PO SCH (08:21)
[2021-01-28] MEDS: Isosorbide Dinitrate 20 MG TAB PO SCH (08:21)
[2021-01-28] MEDS: Aspirin 81 mg Enteric Coated Tablet PO SCH (08:21)
[2021-01-28] MEDS: Docusate 100 MG CAP PO PRN ×2 (08:21→20:32)
[2021-01-28] MEDS: Furosemide 20 MG TAB PO SCH (08:21)
[2021-01-28] MEDS: Amlodipine 5 MG TAB PO SCH (08:22)
[2021-01-28] MEDS: Gabapentin 300 MG CAP PO SCH ×2 (08:23→20:34)
[2021-01-28] MEDS: Aripiprazole 10 MG TAB PO SCH (08:24)
[2021-01-28] MEDS: Ferrous Sulfate 325 MG TAB PO SCH (08:24)
[2021-01-28] MEDS: Ezetimibe 10 MG TAB PO SCH (08:24)
[2021-01-28] MEDS: Apixaban 5 MG TAB PO SCH ×2 (08:25→20:33)
[2021-01-28] MEDS: Polyethylene Glycol 3350 17 GM Packet PO SCH (08:25)
[2021-01-28] MEDS: Atorvastatin Calcium 40 MG TAB PO SCH (20:32)
[2021-01-28] MEDS: traZODone HCl 50 MG TAB PO SCH (20:33)
[2021-01-28] MEDS: Donepezil HCl 5 MG TAB PO SCH (20:33)
[2021-01-29] MEDS: Polyethylene Glycol 3350 17 GM Packet PO SCH (08:55)
[2021-01-29] MEDS: Furosemide 20 MG TAB PO SCH (08:55)
[2021-01-29] MEDS: Ezetimibe 10 MG TAB PO SCH (08:55)
[2021-01-29] MEDS: Isosorbide Dinitrate 20 MG TAB PO SCH (08:55)
[2021-01-29] MEDS: Metoprolol Tartrate 25 MG TAB PO SCH ×2 (08:55→20:16)
[2021-01-29] MEDS: DULoxetine 30 MG CAP PO SCH (08:55)
[2021-01-29] MEDS: Amlodipine 5 MG TAB PO SCH (08:56)
[2021-01-29] MEDS: Aspirin 81 mg Enteric Coated Tablet PO SCH (08:56)
[2021-01-29] MEDS: Ferrous Sulfate 325 MG TAB PO SCH (08:56)
[2021-01-29] MEDS: Apixaban 5 MG TAB PO SCH ×2 (08:56→20:15)
[2021-01-29] MEDS: Aripiprazole 10 MG TAB PO SCH (08:57)
[2021-01-29] MEDS: Docusate 100 MG CAP PO PRN ×2 (08:57→20:16)
[2021-01-29] MEDS: Gabapentin 300 MG CAP PO SCH ×2 (08:57→20:15)
[2021-01-29 16:01] LABS: SARS-CoV-2 PCR by NAA Not Detected (NotDetected)
[2021-01-29] MEDS ORDERED: Bisacodyl 10 MG SUPP PR PRN (19:27)
[2021-01-29] MEDS ORDERED: Fleet Enema 133 ML BOT PR SCH (19:30)
[2021-01-29] MEDS: Atorvastatin Calcium 40 MG TAB PO SCH (20:15)
[2021-01-29] MEDS: Donepezil HCl 5 MG TAB PO SCH (20:15)
[2021-01-29] MEDS: traZODone HCl 50 MG TAB PO SCH (20:32)
[2021-01-30 08:14] VITALS: BP 105/66; TEMP 98.1
[2021-01-30] MEDS: Polyethylene Glycol 3350 17 GM Packet PO SCH (08:56)
[2021-01-30] MEDS: Aripiprazole 10 MG TAB PO SCH (08:58)
[2021-01-30] MEDS: Furosemide 20 MG TAB PO SCH (08:58)
[2021-01-30] MEDS: Gabapentin 300 MG CAP PO SCH (08:58)
[2021-01-30] MEDS: Isosorbide Dinitrate 20 MG TAB PO SCH (08:58)
[2021-01-30] MEDS: DULoxetine 30 MG CAP PO SCH (08:58)
[2021-01-30] MEDS: Apixaban 5 MG TAB PO SCH (08:58)
[2021-01-30] MEDS: Ferrous Sulfate 325 MG TAB PO SCH (08:58)
[2021-01-30] MEDS: Amlodipine 5 MG TAB PO SCH (08:59)
[2021-01-30] MEDS: Ezetimibe 10 MG TAB PO SCH (08:59)
[2021-01-30] MEDS: Aspirin 81 mg Enteric Coated Tablet PO SCH (08:59)
[2021-01-30] MEDS: Metoprolol Tartrate 25 MG TAB PO SCH (09:00)
== END 2021-01-30 15:14 | DRG 308 ==
LOC: ERS 19:05 → ERHOLD 22:42 → 2NO 01-22 14:06 → OBSVTOIN 01-23 16:32 → T4-A 01-27 14:28
PROVIDERS: ADMIT Internal Medicine; ATTEND Internal Medicine
PROC: 0T9B70Z Drainage of Bladder with Drainage Device, Via Natural or Artificial Opening (ICD-10-PCS; principal; 2021-01-23)
DX: I48.0 Paroxysmal atrial fibrillation (principal); G93.41 Metabolic encephalopathy; N13.0 Hydronephrosis with ureteropelvic junction obstruction; Z20.822 Contact with and (suspected) exposure to COVID-19; I47.2 Ventricular tachycardia; Z23 Encounter for immunization; F03.90 Unspecified dementia, unspecified severity, without behavioral disturbance, psychotic disturbance, mood disturbance, and anxiety; J44.9 Chronic obstructive pulmonary disease, unspecified; E87.6 Hypokalemia; E78.2 Mixed hyperlipidemia; I25.10 Atherosclerotic heart disease of native coronary artery without angina pectoris; H91.90 Unspecified hearing loss, unspecified ear; K21.9 Gastro-esophageal reflux disease without esophagitis; F41.9 Anxiety disorder, unspecified; N32.0 Bladder-neck obstruction; K59.00 Constipation, unspecified; Z90.710 Acquired absence of both cervix and uterus; Z86.73 Personal history of transient ischemic attack (TIA), and cerebral infarction without residual deficits; Z88.5 Allergy status to narcotic agent; Z88.8 Allergy status to other drugs, medicaments and biological substances; Z91.041 Radiographic dye allergy status; Z82.49 Family history of ischemic heart disease and other diseases of the circulatory system; Z90.49 Acquired absence of other specified parts of digestive tract; Z98.49 Cataract extraction status, unspecified eye; Z87.440 Personal history of urinary (tract) infections
CPT/HCPCS: 36415; 76770; 80048; 80053; 83735; 83880; 84443; 84484; 85025; 90471; 90732; 93005; 93010; 93306; 96365; G0009; G0378; J3475; U0002; U0003; U0005

== ENCOUNTER 2021-03-17 09:18 | Inpatient (IN) | payer MEDICARE ==
[2021-03-17] MEDS ORDERED: Diltiazem 125 MG/25 ML ONE ×3 (09:50→12:02)
[2021-03-17 10:13] LABS: Hemoglobin 10.7 g/dL (12.0-16.0); Mean Corpuscular HGB CONC 32.3 g/dL (32.0-36.0); Mean Corpuscular Volume 86.7 fL (78.0-98.0); Mean Platelet Volume 6.8 fL (7.4-10.4); Platelet Count 674 thou/uL (130-400); RBC Distribution Width 13.6 % (11.5-14.5); Red Blood Cell (RBC) Count 3.82 mill/uL (4.20-5.40); White Blood Cell (WBC) Count 21.4 thou/uL (4.8-10.8)
[2021-03-17] MEDS ORDERED: Famotidine/PF 20 mg/2ml Vial SLOW IVP SCH (10:15)
[2021-03-17] MEDS ORDERED: Diltiazem HCl 125 MG, Admixture Fee 1 EACH in Sodium Chloride 0.9% 100 ML IVPB SCH (10:15)
[2021-03-17 10:17] LABS: INR-International Normal Ratio 1.3; Prothrombin Time 16.1 sec (12.0-14.7)
[2021-03-17 10:38] LABS: Band 35 % (5-11); Burr Cells MODERATE= 6-15 cells (100X) (0-1/hpf); Eosinophils 1 % (0-10); Lymphocytes 4 % (21-51); MDiff Complete? YES; Monocytes 4 % (0-10); Neutrophil 56 % (42-75); Platelet Morphology Comment Appears Increased; Polychromasia SLIGHT = 2-3 cells (100X) (0-2/hpf); Schistocytes SLIGHT = 2-5 cells (100X) (0-1/hpf)
[2021-03-17] MEDS ORDERED: Cefepime 2 GM VIAL ONE (11:17)
[2021-03-17 12:10] LABS: ALT (SGPT) 19 U/L (8-55); AST (SGOT) 55 U/L (5-34); Acetaminophen Less than 6.0 mcg/mL (10.0-30.0); Albumin 3.2 g/dL (3.4-4.8); Alcohol Less than 10 mg/dL (Less than 10); Alkaline Phosphatase 148 U/L (40-110); Anion Gap 31 mmol/L (10-20); BUN (Urea Nitrogen) 17 mg/dL (9.8-20.1); Bilirubin, Total 1.6 mg/dL (0.2-1.2); CK (CPK) 373 U/L (29-168); Calc. Creatinine Clearance 0 mL/min (70-130); Calcium 8.5 mg/dL (7.8-10.44); Carbon Dioxide 16 mmol/L (23-31); Chloride 97 mmol/L (98-107); Globulin 3.9 g/dL (2.4-3.5); Glucose 137 mg/dL (83-110); Magnesium 1.5 mg/dL (1.6-2.6); Protein, Total 7.1 g/dL (5.8-8.1); Salicylate Less than 8.0 mg/dL (15.0-30.0); Sodium 141 mmol/L (136-145)
[2021-03-17 12:15] LABS: Potassium 2.8 mmol/L (3.5-5.1)
[2021-03-17] MEDS ORDERED: Potassium Chloride 20 MEQ/100 ML PREMIX BAG ONE ×2 (12:51→13:47)
[2021-03-17] MEDS ORDERED: Magnesium 2 GM/50 ML BAG (IN WATER) ONE (12:51)
[2021-03-17] MEDS ORDERED: Vancomycin 1 GM/200 ML BAG ONE (12:51)
[2021-03-17 13:00] LABS: Bacteria/HPF 1+ HPF (None Seen); Bilirubin Negative (Negative); Blood, Urine Negative (Negative); Clarity Turbid (Clear); Glucose, Urine (Dipstick) Normal (Negative); Ketone, Urine Negative (Negative); Leukocyte 500 Leu/uL (Negative); Nitrite Negative (Negative); Protein, Urine (Dipstick) 20 mg/dL (Neg-Trace); RBC/HPF 0-3 HPF (0-3); Specific Gravity, Urine 1.008 (1.002-1.036); Squamous Epithelial 0-3 HPF (0-3); Urobilinogen Normal mg/dL (Less than 2); WBC/HPF 21-50 HPF (0-3)
[2021-03-17] MEDS ORDERED: Ondansetron PF 4 MG/2 ML Vial IVP PRN (14:02)
[2021-03-17] MEDS ORDERED: hydrALAZINE 20 MG/ML VIAL SLOW IVP PRN (14:02)
[2021-03-17] MEDS ORDERED: Insulin Regular 300 UNITS/3 ML VIAL SC PRN (14:02)
[2021-03-17] MEDS ORDERED: Dextrose 5% in Water 1,000 ML IV PRN (14:02)
[2021-03-17] MEDS ORDERED: Dextrose 50% Abboject 50 ML SYRINGE SLOW IVP PRN (14:02)
[2021-03-17] MEDS ORDERED: traMADol HCl 50 MG TAB PO PRN ×3 (14:08→19:47)
[2021-03-17] MEDS ORDERED: Magnesium 2 GM/50 ML 2 GM in Premix Bag 1 BAG IVPB SCH (14:15)
[2021-03-17] MEDS ORDERED: Piperacillin/Tazobactam 3.375 GM in Sodium Chloride 0.9% 100 ML IVPB SCH ×2 (14:15→16:30)
[2021-03-17 14:16] LABS: Lactic Acid 6.5 mmol/L (0.5-2.2)
[2021-03-17] MEDS ORDERED: Vancomycin HCl 1.5 GM in Sodium Chloride 0.9% 250 ML 300 ML IVPB SCH (14:30)
[2021-03-17] MEDS ORDERED: Acetaminophen 325 MG TAB PO SCH (16:15)
[2021-03-17] MEDS ORDERED: ceFAZolin Sodium/D5W 2 GM in Premix Bag 1 BAG IVPB SCH (16:15)
[2021-03-17] MEDS ORDERED: Lorazepam 2 MG/ML VIAL ONE (16:26)
[2021-03-17 18:23] LABS: Lactic Acid 3.7 mmol/L (0.5-2.2)
[2021-03-17 18:27] LABS: Anion Gap 20 mmol/L (10-20); BUN (Urea Nitrogen) 18 mg/dL (9.8-20.1); Calc. Creatinine Clearance 0 mL/min (70-130); Carbon Dioxide 24 mmol/L (23-31); Chloride 100 mmol/L (98-107); Glucose 122 mg/dL (83-110); Phosphorus 4.4 mg/dL (2.3-4.7); Potassium 3.8 mmol/L (3.5-5.1); Sodium 140 mmol/L (136-145)
[2021-03-17] MEDS: Potassium Chloride 20 MEQ in Premix Bag 1 BAG IVPB SCH ×2 (19:00→20:33)
[2021-03-17] MEDS: Sodium Chloride 0.9% 1,000 ML IV SCH ×2 (19:01→23:53)
[2021-03-17 19:06] LABS: SARS-CoV-2 NAA Rapid Test Not Detected (NotDetected)
[2021-03-17] MEDS ORDERED: Haloperidol Lactate 5 MG/ML VIAL SLOW IVP PRN (19:43)
[2021-03-17] MEDS ORDERED: Fentanyl 100 MCG/2 ML VIAL SLOW IVP PRN (19:53)
[2021-03-17] MEDS ORDERED: Potassium Chloride 20 MEQ in Premix Bag 1 BAG IVPB SCH (20:15)
[2021-03-17] MEDS: Famotidine/PF 20 mg/2ml Vial SLOW IVP SCH (20:34)
[2021-03-17] MEDS: Senokot S 8.6-50 MG TAB PO SCH (20:35)
[2021-03-17] MEDS: Metoprolol Tartrate 25 MG TAB PO SCH (20:38)
[2021-03-17] MEDS ORDERED: Metoprolol Tartrate 25 MG TAB PO SCH (21:00)
[2021-03-17] MEDS: Piperacillin/Tazobactam 3.375 GM in Sodium Chloride 0.9% 100 ML IVPB SCH (22:06)
[2021-03-17] MEDS: traMADol HCl 50 MG TAB PO SCH (23:57)
[2021-03-17] MEDS: Acetaminophen 325 MG TAB PO SCH (23:58)
[2021-03-18 03:37] LABS: Lactic Acid 1.3 mmol/L (0.5-2.2)
[2021-03-18 03:40] LABS: Anion Gap 15 mmol/L (10-20); BUN (Urea Nitrogen) 15 mg/dL (9.8-20.1); CK (CPK) 644 U/L (29-168); Calc. Creatinine Clearance 59 mL/min (70-130); Calcium 7.6 mg/dL (7.8-10.44); Carbon Dioxide 24 mmol/L (23-31); Chloride 105 mmol/L (98-107); Glucose 123 mg/dL (83-110); Magnesium 1.8 mg/dL (1.6-2.6); Phosphorus 4.1 mg/dL (2.3-4.7); Sodium 141 mmol/L (136-145)
[2021-03-18 03:45] LABS: Potassium 2.8 mmol/L (3.5-5.1)
[2021-03-18 04:14] LABS: Hemoglobin 7.4 g/dL (12.0-16.0); Mean Corpuscular Hemoglobin 28.8 pg (27.0-31.0); Mean Corpuscular Volume 87.2 fL (78.0-98.0); Mean Platelet Volume 6.2 fL (7.4-10.4); Platelet Count 304 thou/uL (130-400); RBC Distribution Width 14.2 % (11.5-14.5); Red Blood Cell (RBC) Count 2.58 mill/uL (4.20-5.40); White Blood Cell (WBC) Count 6.9 thou/uL (4.8-10.8)
[2021-03-18 04:51] LABS: Band 18 % (5-11); Lymphocytes 15 % (21-51); MDiff Complete? YES; Monocytes 8 % (0-10); Neutrophil 59 % (42-75); Platelet Morphology Comment Appears Adequate; RBC Morphology Normal; Small Platelets SLIGHT
[2021-03-18] MEDS ORDERED: Magnesium 2 GM/50 ML 2 GM in Premix Bag 1 BAG IVPB SCH (05:15)
[2021-03-18] MEDS ORDERED: Potassium Phosphate 30 MMOL in Sodium Chloride 0.9% 250 ML 250 ML IVPB SCH (05:30)
[2021-03-18] MEDS: Piperacillin/Tazobactam 3.375 GM in Sodium Chloride 0.9% 100 ML IVPB SCH ×3 (05:33→19:48)
[2021-03-18] MEDS: Acetaminophen 325 MG TAB PO SCH ×4 (05:47→23:12)
[2021-03-18] MEDS: traMADol HCl 50 MG TAB PO SCH ×4 (05:50→23:12)
[2021-03-18] MEDS ORDERED: Sodium Chloride 0.9% 500 ML IV SCH (06:00)
[2021-03-18] MEDS ORDERED: SODIUM CHLORIDE 0.9% IVPB SCH (07:00)
[2021-03-18] MEDS ORDERED: POTASSIUM CHLORIDE IVPB SCH (07:00)
[2021-03-18] MEDS: Sodium Chloride 0.9% 1,000 ML IV SCH ×3 (07:35→23:03)
[2021-03-18] MEDS: Ferrous Sulfate 325 MG TAB PO SCH ×2 (09:42→19:48)
[2021-03-18] MEDS: Famotidine/PF 20 mg/2ml Vial SLOW IVP SCH ×2 (09:42→19:48)
[2021-03-18] MEDS: Ascorbic Acid 500 mg Chewable Tablet PO SCH ×2 (09:43→19:47)
[2021-03-18] MEDS: Polyethylene Glycol 3350 17 GM Packet PO SCH (09:43)
[2021-03-18] MEDS: Metoprolol Tartrate 25 MG TAB PO SCH ×2 (09:43→19:48)
[2021-03-18] MEDS: Senokot S 8.6-50 MG TAB PO SCH ×2 (09:43→19:49)
[2021-03-19 04:10] LABS: #Eosinphils 0.1 thou/uL (0.0-0.7); #Lymphocytes 1.8 thou/uL (1.20-3.40); #Monocytes 0.8 thou/uL (0.11-0.59); #Neutrophils 7.1 thou/uL (1.40-6.50); %Basophils 0.3 % (0.0-1.0); %Eosinophils 1.2 % (0.0-10.0); %Lymphocytes 18.2 % (21.0-51.0); %Monocytes 8.4 % (0.0-10.0); Hemoglobin 8.4 g/dL (12.0-16.0); Mean Corpuscular HGB CONC 32.6 g/dL (32.0-36.0); Mean Corpuscular Hemoglobin 28.7 pg (27.0-31.0); Mean Corpuscular Volume 87.9 fL (78.0-98.0); Mean Platelet Volume 6.4 fL (7.4-10.4); Platelet Count 397 thou/uL (130-400); RBC Distribution Width 15.6 % (11.5-14.5); Red Blood Cell (RBC) Count 2.93 mill/uL (4.20-5.40); White Blood Cell (WBC) Count 9.9 thou/uL (4.8-10.8)
[2021-03-19 04:20] LABS: Anion Gap 12 mmol/L (10-20); BUN (Urea Nitrogen) 11 mg/dL (9.8-20.1); Calc. Creatinine Clearance 68 mL/min (70-130); Calcium 7.3 mg/dL (7.8-10.44); Carbon Dioxide 23 mmol/L (23-31); Chloride 112 mmol/L (98-107); Glucose 84 mg/dL (83-110); Magnesium 1.8 mg/dL (1.6-2.6); Phosphorus 3.1 mg/dL (2.3-4.7); Potassium 3.4 mmol/L (3.5-5.1); Sodium 144 mmol/L (136-145)
[2021-03-19] MEDS ORDERED: Haloperidol Lactate 5 MG/ML VIAL SLOW IVP SCH (04:45)
[2021-03-19] MEDS: Acetaminophen 325 MG TAB PO SCH ×3 (05:00→19:16)
[2021-03-19] MEDS: traMADol HCl 50 MG TAB PO SCH ×3 (05:01→18:41)
[2021-03-19] MEDS: Piperacillin/Tazobactam 3.375 GM in Sodium Chloride 0.9% 100 ML IVPB SCH ×3 (05:02→20:21)
[2021-03-19] MEDS ORDERED: Magnesium 2 GM/50 ML 2 GM in Premix Bag 1 BAG IVPB SCH (07:30)
[2021-03-19] MEDS ORDERED: Potassium Phosphate 30 MMOL, Magnesium Sulfate 2 GM in Sodium Chloride 0.9% 250 ML 250 ML IVPB SCH (07:30)
[2021-03-19] MEDS: Sodium Chloride 0.9% 1,000 ML IV SCH ×2 (08:29→20:22)
[2021-03-19] MEDS: Polyethylene Glycol 3350 17 GM Packet PO SCH (08:29)
[2021-03-19] MEDS: Ascorbic Acid 500 mg Chewable Tablet PO SCH ×2 (08:29→20:21)
[2021-03-19] MEDS: Senokot S 8.6-50 MG TAB PO SCH ×2 (08:29→20:21)
[2021-03-19] MEDS: Famotidine/PF 20 mg/2ml Vial SLOW IVP SCH (08:30)
[2021-03-19] MEDS: Ferrous Sulfate 325 MG TAB PO SCH ×2 (08:30→20:21)
[2021-03-19] MEDS: Metoprolol Tartrate 25 MG TAB PO SCH (08:30)
[2021-03-19] MEDS ORDERED: Calcium Chloride 13.6 MEQ in Sodium Chloride 0.9% 100 ML IVPB SCH (08:45)
[2021-03-19] MEDS ORDERED: Metoprolol Tartrate 25 MG TAB PO SCH ×2 (09:00→21:00)
[2021-03-19] MEDS: Famotidine 20 MG TAB PO SCH ×2 (09:09→20:21)
[2021-03-19] MEDS: Acetaminophen 500 MG TAB PO SCH (18:40)
[2021-03-19] MEDS: Melatonin 3 MG TAB PO SCH (20:21)
[2021-03-19] MEDS: Enoxaparin Sodium 40 MG/0.4 ML SYRINGE SC SCH (20:21)
[2021-03-19] MEDS ORDERED: Estrogens, Conjugated 30 GM TUBE VAG SCH ×2 (21:00)
[2021-03-20] MEDS: Acetaminophen 500 MG TAB PO SCH ×4 (00:27→20:34)
[2021-03-20] MEDS: traMADol HCl 50 MG TAB PO SCH ×4 (00:30→20:34)
[2021-03-20 05:43] LABS: #Eosinphils 0.3 thou/uL (0.0-0.7); #Lymphocytes 2.7 thou/uL (1.20-3.40); #Monocytes 0.9 thou/uL (0.11-0.59); %Basophils 0.2 % (0.0-1.0); %Eosinophils 2.7 % (0.0-10.0); %Lymphocytes 24.4 % (21.0-51.0); %Monocytes 8.6 % (0.0-10.0); %Neutrophils 64.1 % (42.0-75.0); Hemoglobin 9.1 g/dL (12.0-16.0); Mean Corpuscular HGB CONC 31.6 g/dL (32.0-36.0); Mean Corpuscular Hemoglobin 27.6 pg (27.0-31.0); Mean Corpuscular Volume 87.4 fL (78.0-98.0); Mean Platelet Volume 6.2 fL (7.4-10.4); Platelet Count 424 thou/uL (130-400); Red Blood Cell (RBC) Count 3.28 mill/uL (4.20-5.40); White Blood Cell (WBC) Count 10.9 thou/uL (4.8-10.8)
[2021-03-20] MEDS: Piperacillin/Tazobactam 3.375 GM in Sodium Chloride 0.9% 100 ML IVPB SCH (05:45)
[2021-03-20 06:10] LABS: Anion Gap 14 mmol/L (10-20); BUN (Urea Nitrogen) 9 mg/dL (9.8-20.1); Calc. Creatinine Clearance 68 mL/min (70-130); Calcium 8.1 mg/dL (7.8-10.44); Carbon Dioxide 23 mmol/L (23-31); Chloride 112 mmol/L (98-107); Glucose 91 mg/dL (83-110); Magnesium 1.8 mg/dL (1.6-2.6); Phosphorus 4.1 mg/dL (2.3-4.7); Potassium 3.6 mmol/L (3.5-5.1); Sodium 145 mmol/L (136-145)
[2021-03-20] MEDS ORDERED: Magnesium 2 GM/50 ML 2 GM in Premix Bag 1 BAG IVPB SCH (07:30)
[2021-03-20] MEDS ORDERED: Potassium Chloride 20 MEQ in Premix Bag 1 BAG IVPB SCH (08:00)
[2021-03-20] MEDS ORDERED: FLU VACC QS2021-22(65YR UP)/PF 240 MCG/0.7 ML SYRINGE IM ONE (09:00)
[2021-03-20] MEDS ORDERED: Amoxicillin/Potassium Clav 500 MG TAB PO SCH (09:00)
[2021-03-20] MEDS: Ferrous Sulfate 325 MG TAB PO SCH ×2 (09:09→09:11)
[2021-03-20] MEDS: DULoxetine 30 MG CAP PO SCH (09:10)
[2021-03-20] MEDS: Ezetimibe 10 MG TAB PO SCH (09:10)
[2021-03-20] MEDS: Polyethylene Glycol 3350 17 GM Packet PO SCH (09:11)
[2021-03-20] MEDS: Senokot S 8.6-50 MG TAB PO SCH ×2 (09:11→20:33)
[2021-03-20] MEDS: Metoprolol Tartrate 25 MG TAB PO SCH ×2 (09:11→20:34)
[2021-03-20] MEDS: Famotidine 20 MG TAB PO SCH (09:12)
[2021-03-20] MEDS: Ascorbic Acid 500 mg Chewable Tablet PO SCH ×2 (09:12→20:33)
[2021-03-20] MEDS: Amoxicillin/Potassium Clav 875 MG TAB PO SCH ×2 (09:41→20:33)
[2021-03-20] MEDS: Saccharomyces boulardii 250 MG CAP PO SCH ×2 (09:41→20:33)
[2021-03-20] MEDS: Aripiprazole 10 MG TAB PO SCH (09:41)
[2021-03-20] MEDS: Atorvastatin Calcium 40 MG TAB PO SCH (20:34)
[2021-03-20] MEDS: Melatonin 3 MG TAB PO SCH (20:34)
[2021-03-20] MEDS ORDERED: Estradiol 0.01% Vaginal Cream 42.5 gm Tube VAG SCH (21:00)
[2021-03-20] MEDS ORDERED: Estrogens, Conjugated 30 GM TUBE VAG SCH (22:00)
[2021-03-20] MEDS: Enoxaparin Sodium 40 MG/0.4 ML SYRINGE SC SCH (22:04)
[2021-03-21] MEDS: Acetaminophen 500 MG TAB PO SCH ×4 (01:27→17:24)
[2021-03-21] MEDS: traMADol HCl 50 MG TAB PO SCH ×4 (01:29→17:24)
[2021-03-21 04:19] LABS: Hemoglobin 8.7 g/dL (12.0-16.0); Mean Corpuscular Hemoglobin 28.9 pg (27.0-31.0); Mean Corpuscular Volume 87.6 fL (78.0-98.0); Mean Platelet Volume 6.3 fL (7.4-10.4); Platelet Count 406 thou/uL (130-400); RBC Distribution Width 15.7 % (11.5-14.5); Red Blood Cell (RBC) Count 3.01 mill/uL (4.20-5.40)
[2021-03-21 04:52] LABS: Anion Gap 12 mmol/L (10-20); BUN (Urea Nitrogen) 11 mg/dL (9.8-20.1); Calc. Creatinine Clearance 69 mL/min (70-130); Calcium 7.6 mg/dL (7.8-10.44); Carbon Dioxide 22 mmol/L (23-31); Chloride 111 mmol/L (98-107); Glucose 135 mg/dL (83-110); Magnesium 1.9 mg/dL (1.6-2.6); Phosphorus 2.4 mg/dL (2.3-4.7); Potassium 3.4 mmol/L (3.5-5.1); Sodium 142 mmol/L (136-145)
[2021-03-21 05:47] LABS: Band 2 % (5-11); Eosinophils 1 % (0-10); Lymphocytes 25 % (21-51); MDiff Complete? YES; Monocytes 3 % (0-10); Neutrophil 69 % (42-75)
[2021-03-21] MEDS ORDERED: PHOS-NAK 1 PKT PACK PO SCH (08:00)
[2021-03-21] MEDS ORDERED: Potassium Chloride 20 MEQ TAB PO SCH (08:00)
[2021-03-21] MEDS: Ferrous Sulfate 325 MG TAB PO SCH (08:22)
[2021-03-21] MEDS: Aripiprazole 10 MG TAB PO SCH (08:22)
[2021-03-21] MEDS: Senokot S 8.6-50 MG TAB PO SCH ×2 (08:22→20:37)
[2021-03-21] MEDS: Metoprolol Tartrate 25 MG TAB PO SCH ×2 (08:22→20:37)
[2021-03-21] MEDS: DULoxetine 30 MG CAP PO SCH (08:22)
[2021-03-21] MEDS: Ezetimibe 10 MG TAB PO SCH (08:22)
[2021-03-21] MEDS: Polyethylene Glycol 3350 17 GM Packet PO SCH (08:23)
[2021-03-21] MEDS: Amoxicillin/Potassium Clav 875 MG TAB PO SCH ×2 (08:23→20:37)
[2021-03-21] MEDS: Saccharomyces boulardii 250 MG CAP PO SCH ×2 (08:23→20:37)
[2021-03-21] MEDS: Ascorbic Acid 500 mg Chewable Tablet PO SCH ×2 (08:23→20:36)
[2021-03-21] MEDS: Estrogens, Conjugated 30 GM TUBE VAG SCH (20:36)
[2021-03-21] MEDS: Enoxaparin Sodium 40 MG/0.4 ML SYRINGE SC SCH (20:36)
[2021-03-21] MEDS: Atorvastatin Calcium 40 MG TAB PO SCH (20:37)
[2021-03-21] MEDS: Melatonin 3 MG TAB PO SCH (20:37)
[2021-03-22] MEDS: Acetaminophen 500 MG TAB PO SCH ×4 (00:15→18:35)
[2021-03-22] MEDS: traMADol HCl 50 MG TAB PO SCH ×4 (00:15→18:36)
[2021-03-22 06:04] LABS: #Eosinphils 0.2 thou/uL (0.0-0.7); #Lymphocytes 1.8 thou/uL (1.20-3.40); #Monocytes 0.7 thou/uL (0.11-0.59); #Neutrophils 8.3 thou/uL (1.40-6.50); %Basophils 0.3 % (0.0-1.0); %Eosinophils 1.9 % (0.0-10.0); %Lymphocytes 16.3 % (21.0-51.0); %Monocytes 6.5 % (0.0-10.0); Mean Corpuscular HGB CONC 31.5 g/dL (32.0-36.0); Mean Platelet Volume 6.2 fL (7.4-10.4); Platelet Count 437 thou/uL (130-400); RBC Distribution Width 16.5 % (11.5-14.5); Red Blood Cell (RBC) Count 3.22 mill/uL (4.20-5.40); White Blood Cell (WBC) Count 11.1 thou/uL (4.8-10.8)
[2021-03-22 06:33] LABS: Anion Gap 15 mmol/L (10-20); BUN (Urea Nitrogen) 15 mg/dL (9.8-20.1); Calc. Creatinine Clearance 74 mL/min (70-130); Calcium 7.9 mg/dL (7.8-10.44); Carbon Dioxide 23 mmol/L (23-31); Chloride 113 mmol/L (98-107); Glucose 117 mg/dL (83-110); Magnesium 1.7 mg/dL (1.6-2.6); Phosphorus 3.5 mg/dL (2.3-4.7); Potassium 3.7 mmol/L (3.5-5.1); Sodium 147 mmol/L (136-145)
[2021-03-22] MEDS ORDERED: PHOS-NAK 1 PKT PACK PO SCH (08:45)
[2021-03-22] MEDS: Ferrous Sulfate 325 MG TAB PO SCH (10:10)
[2021-03-22] MEDS: DULoxetine 30 MG CAP PO SCH (10:10)
[2021-03-22] MEDS: Senokot S 8.6-50 MG TAB PO SCH ×2 (10:11→20:56)
[2021-03-22] MEDS: Furosemide 20 MG TAB PO SCH (10:11)
[2021-03-22] MEDS: Saccharomyces boulardii 250 MG CAP PO SCH ×2 (10:11→20:56)
[2021-03-22] MEDS: Amoxicillin/Potassium Clav 875 MG TAB PO SCH ×2 (10:11→20:56)
[2021-03-22] MEDS: Aripiprazole 10 MG TAB PO SCH (10:11)
[2021-03-22] MEDS: Ezetimibe 10 MG TAB PO SCH (10:11)
[2021-03-22] MEDS: Magnesium Oxide 400 MG TAB PO SCH ×2 (10:11→20:56)
[2021-03-22] MEDS: Ascorbic Acid 500 mg Chewable Tablet PO SCH ×2 (10:11→20:56)
[2021-03-22] MEDS: Metoprolol Tartrate 25 MG TAB PO SCH ×2 (10:12→20:56)
[2021-03-22] MEDS: Polyethylene Glycol 3350 17 GM Packet PO SCH (10:12)
[2021-03-22] MEDS: Enoxaparin Sodium 40 MG/0.4 ML SYRINGE SC SCH (20:56)
[2021-03-22] MEDS: Atorvastatin Calcium 40 MG TAB PO SCH (20:56)
[2021-03-22] MEDS: Melatonin 3 MG TAB PO SCH (20:56)
[2021-03-22] MEDS: Estrogens, Conjugated 30 GM TUBE VAG SCH (20:57)
[2021-03-23] MEDS: traMADol HCl 50 MG TAB PO SCH ×4 (00:17→18:42)
[2021-03-23] MEDS: Acetaminophen 500 MG TAB PO SCH ×4 (00:17→18:43)
[2021-03-23] MEDS: Ascorbic Acid 500 mg Chewable Tablet PO SCH ×2 (09:20→20:52)
[2021-03-23] MEDS: Furosemide 20 MG TAB PO SCH (09:20)
[2021-03-23] MEDS: Aripiprazole 10 MG TAB PO SCH (09:20)
[2021-03-23] MEDS: Ezetimibe 10 MG TAB PO SCH (09:20)
[2021-03-23] MEDS: Senokot S 8.6-50 MG TAB PO SCH ×2 (09:20→20:52)
[2021-03-23] MEDS: Amoxicillin/Potassium Clav 875 MG TAB PO SCH (09:20)
[2021-03-23] MEDS: Metoprolol Tartrate 25 MG TAB PO SCH ×2 (09:20→20:52)
[2021-03-23] MEDS: Ferrous Sulfate 325 MG TAB PO SCH (09:21)
[2021-03-23] MEDS: Saccharomyces boulardii 250 MG CAP PO SCH ×2 (09:21→20:51)
[2021-03-23] MEDS: Polyethylene Glycol 3350 17 GM Packet PO SCH (09:21)
[2021-03-23] MEDS: Magnesium Oxide 400 MG TAB PO SCH ×2 (09:21→20:52)
[2021-03-23] MEDS: DULoxetine 30 MG CAP PO SCH (09:24)
[2021-03-23] MEDS: Enoxaparin Sodium 40 MG/0.4 ML SYRINGE SC SCH (20:51)
[2021-03-23] MEDS: Melatonin 3 MG TAB PO SCH (20:52)
[2021-03-23] MEDS: Atorvastatin Calcium 40 MG TAB PO SCH (20:52)
[2021-03-23] MEDS: Estrogens, Conjugated 30 GM TUBE VAG SCH (20:52)
[2021-03-24] MEDS: Acetaminophen 500 MG TAB PO SCH ×4 (00:30→18:12)
[2021-03-24] MEDS: traMADol HCl 50 MG TAB PO SCH ×4 (00:30→18:12)
[2021-03-24] MEDS: Ascorbic Acid 500 mg Chewable Tablet PO SCH ×2 (09:05→20:49)
[2021-03-24] MEDS: Ferrous Sulfate 325 MG TAB PO SCH (09:05)
[2021-03-24] MEDS: DULoxetine 30 MG CAP PO SCH (09:06)
[2021-03-24] MEDS: Saccharomyces boulardii 250 MG CAP PO SCH ×2 (09:07→20:48)
[2021-03-24] MEDS: Senokot S 8.6-50 MG TAB PO SCH ×2 (09:07→20:49)
[2021-03-24] MEDS: Furosemide 20 MG TAB PO SCH (09:07)
[2021-03-24] MEDS: Ezetimibe 10 MG TAB PO SCH (09:07)
[2021-03-24] MEDS: Metoprolol Tartrate 25 MG TAB PO SCH ×2 (09:07→20:49)
[2021-03-24] MEDS: Magnesium Oxide 400 MG TAB PO SCH (09:07)
[2021-03-24] MEDS: Polyethylene Glycol 3350 17 GM Packet PO SCH (09:08)
[2021-03-24] MEDS: Aripiprazole 10 MG TAB PO SCH (11:38)
[2021-03-24] MEDS: Melatonin 3 MG TAB PO SCH (20:48)
[2021-03-24] MEDS: Atorvastatin Calcium 40 MG TAB PO SCH (20:49)
[2021-03-24] MEDS: Estrogens, Conjugated 30 GM TUBE VAG SCH (20:49)
[2021-03-24] MEDS: Enoxaparin Sodium 40 MG/0.4 ML SYRINGE SC SCH (20:52)
[2021-03-25] MEDS: Acetaminophen 500 MG TAB PO SCH ×4 (00:53→17:16)
[2021-03-25] MEDS: traMADol HCl 50 MG TAB PO SCH ×4 (00:54→17:15)
[2021-03-25] MEDS: Polyethylene Glycol 3350 17 GM Packet PO SCH (08:29)
[2021-03-25] MEDS: Furosemide 20 MG TAB PO SCH (08:30)
[2021-03-25] MEDS: Aripiprazole 10 MG TAB PO SCH (08:30)
[2021-03-25] MEDS: Ascorbic Acid 500 mg Chewable Tablet PO SCH ×2 (08:30→20:11)
[2021-03-25] MEDS: Ferrous Sulfate 325 MG TAB PO SCH (08:30)
[2021-03-25] MEDS: DULoxetine 30 MG CAP PO SCH (08:30)
[2021-03-25] MEDS: Ezetimibe 10 MG TAB PO SCH (08:30)
[2021-03-25] MEDS: Metoprolol Tartrate 25 MG TAB PO SCH ×2 (08:30→20:11)
[2021-03-25] MEDS: Senokot S 8.6-50 MG TAB PO SCH ×2 (08:30→20:11)
[2021-03-25] MEDS: Saccharomyces boulardii 250 MG CAP PO SCH ×2 (08:30→20:12)
[2021-03-25] MEDS: Apixaban 5 MG TAB PO SCH ×2 (08:44→20:12)
[2021-03-25 11:48] LABS: SARS-CoV-2 PCR by NAA Not Detected (NotDetected)
[2021-03-25] MEDS: Atorvastatin Calcium 40 MG TAB PO SCH (20:11)
[2021-03-25] MEDS: Melatonin 3 MG TAB PO SCH (20:12)
[2021-03-25] MEDS: Estrogens, Conjugated 30 GM TUBE VAG SCH (20:12)
[2021-03-26] MEDS: Acetaminophen 500 MG TAB PO SCH ×5 (00:21→23:31)
[2021-03-26] MEDS: traMADol HCl 50 MG TAB PO SCH ×5 (00:22→23:31)
[2021-03-26] MEDS: Ezetimibe 10 MG TAB PO SCH (08:56)
[2021-03-26] MEDS: Furosemide 20 MG TAB PO SCH (08:56)
[2021-03-26] MEDS: Apixaban 5 MG TAB PO SCH ×2 (08:56→20:13)
[2021-03-26] MEDS: Ferrous Sulfate 325 MG TAB PO SCH (08:56)
[2021-03-26] MEDS: Aripiprazole 10 MG TAB PO SCH (08:56)
[2021-03-26] MEDS: Metoprolol Tartrate 25 MG TAB PO SCH ×2 (08:56→20:14)
[2021-03-26] MEDS: Polyethylene Glycol 3350 17 GM Packet PO SCH (08:56)
[2021-03-26] MEDS: DULoxetine 30 MG CAP PO SCH (08:56)
[2021-03-26] MEDS: Senokot S 8.6-50 MG TAB PO SCH ×2 (08:56→20:14)
[2021-03-26] MEDS: Saccharomyces boulardii 250 MG CAP PO SCH ×2 (08:57→20:14)
[2021-03-26 10:19] VITALS: BMI 25.0
[2021-03-26] MEDS: Estrogens, Conjugated 30 GM TUBE VAG SCH (20:13)
[2021-03-26] MEDS: Ascorbic Acid 500 mg Chewable Tablet PO SCH (20:13)
[2021-03-26] MEDS: Atorvastatin Calcium 40 MG TAB PO SCH (20:13)
[2021-03-26] MEDS: Melatonin 3 MG TAB PO SCH (20:13)
[2021-03-27] MEDS: Acetaminophen 500 MG TAB PO SCH ×2 (04:52→11:28)
[2021-03-27] MEDS: traMADol HCl 50 MG TAB PO SCH ×2 (04:53→11:28)
[2021-03-27] MEDS: Furosemide 20 MG TAB PO SCH (08:36)
[2021-03-27] MEDS: Ezetimibe 10 MG TAB PO SCH (08:37)
[2021-03-27] MEDS: Metoprolol Tartrate 25 MG TAB PO SCH (08:37)
[2021-03-27] MEDS: Apixaban 5 MG TAB PO SCH (08:37)
[2021-03-27] MEDS: DULoxetine 30 MG CAP PO SCH (08:37)
[2021-03-27] MEDS: Ascorbic Acid 500 mg Chewable Tablet PO SCH (08:38)
[2021-03-27] MEDS: Polyethylene Glycol 3350 17 GM Packet PO SCH (08:38)
[2021-03-27] MEDS: Saccharomyces boulardii 250 MG CAP PO SCH (08:38)
[2021-03-27] MEDS: Aripiprazole 10 MG TAB PO SCH (08:38)
[2021-03-27] MEDS: Ferrous Sulfate 325 MG TAB PO SCH (08:38)
[2021-03-27] MEDS: Senokot S 8.6-50 MG TAB PO SCH (08:39)
[2021-03-27 15:50] VITALS: BP 124/80; TEMP 97.7
== END 2021-03-27 17:15 | DRG 963 ==
LOC: ERS 09:18 → ERHOLD 14:02 → CCU 17:28 → SURG A 03-19 14:53
PROVIDERS: ADMIT Surgery; ATTEND Surgery
PROC: 30233N1 Transfusion of Nonautologous Red Blood Cells into Peripheral Vein, Percutaneous Approach (ICD-10-PCS; principal; 2021-03-18)
DX: S72.142A Displaced intertrochanteric fracture of left femur, initial encounter for closed fracture (principal); A41.9 Sepsis, unspecified organism; T79.6XXA Traumatic ischemia of muscle, initial encounter; N17.9 Acute kidney failure, unspecified; N13.6 Pyonephrosis; D62 Acute posthemorrhagic anemia; Z66 Do not resuscitate; Z20.822 Contact with and (suspected) exposure to COVID-19; K21.9 Gastro-esophageal reflux disease without esophagitis; E78.00 Pure hypercholesterolemia, unspecified; E78.1 Pure hyperglyceridemia; I10 Essential (primary) hypertension; F41.9 Anxiety disorder, unspecified; F32.A Depression, unspecified; E87.6 Hypokalemia; W19.XXXA Unspecified fall, initial encounter; I48.91 Unspecified atrial fibrillation; J44.9 Chronic obstructive pulmonary disease, unspecified; G30.1 Alzheimer's disease with late onset; F02.80 Dementia in other diseases classified elsewhere, unspecified severity, without behavioral disturbance, psychotic disturbance, mood disturbance, and anxiety; E83.39 Other disorders of phosphorus metabolism; I69.311 Memory deficit following cerebral infarction; Z98.890 Other specified postprocedural states; Z90.49 Acquired absence of other specified parts of digestive tract; Z90.710 Acquired absence of both cervix and uterus; Z90.09 Acquired absence of other part of head and neck; Z87.891 Personal history of nicotine dependence; Z88.5 Allergy status to narcotic agent; Z88.8 Allergy status to other drugs, medicaments and biological substances; Z91.041 Radiographic dye allergy status; Z79.82 Long term (current) use of aspirin; Z79.899 Other long term (current) drug therapy; Z79.51 Long term (current) use of inhaled steroids; Z79.01 Long term (current) use of anticoagulants
CPT/HCPCS: 36415; 36416; 36430; 51702; 70450; 71045; 71250; 72125; 74177; 80048; 80053; 80307; 81003; 81015; 82550; 83605; 83735; 83880; 84100; 84443; 84484; 85007; 85025; 85027; 85610; 85730; 86850; 86900; 86901; 87040; 87077; 87086; 87186; 93005; 94640; 96365; 96366; 96367; 96375; 96376; G0390; J0692; J1630; J1650; J1815; J2060; J2543; J3370; J3475; J3480; J3490; J7030; J7050; J7620; P9016; S0028; U0002; U0003; U0005

== ENCOUNTER 2021-12-17 13:12 | Observation (INO) | payer OTHER ==
[2021-12-17] MEDS ORDERED: Ondansetron ODT 4 MG TAB PO PRN (17:36)
[2021-12-17] MEDS ORDERED: Ondansetron PF 4 MG/2 ML Vial IVP PRN (17:37)
[2021-12-17] MEDS ORDERED: Acetaminophen 325 MG TAB PO PRN (17:38)
[2021-12-17] MEDS ORDERED: Sodium Chloride 0.9% 1,000 ML IV SCH (17:45)
[2021-12-17] MEDS ORDERED: Ondansetron ODT 4 MG TAB SL PRN (20:34)
[2021-12-17] MEDS ORDERED: traMADol HCl 50 MG TAB PO PRN (20:34)
[2021-12-17] MEDS ORDERED: Amiodarone 200 MG TAB PO SCH (21:00)
[2021-12-17] MEDS ORDERED: OLANZapine 5 MG TAB PO SCH (21:00)
[2021-12-17] MEDS ORDERED: Ezetimibe 10 MG TAB PO SCH (21:00)
[2021-12-17] MEDS ORDERED: Apixaban 5 MG TAB PO SCH (21:00)
[2021-12-17] MEDS ORDERED: Atorvastatin Calcium 40 MG TAB PO SCH (21:00)
[2021-12-17] MEDS: Lorazepam 0.5 MG TAB PO SCH (21:43)
[2021-12-17] MEDS: Gabapentin 300 MG CAP PO SCH (21:43)
[2021-12-17] MEDS: Heparin 5,000 UNITS/ML VIAL SC SCH (21:44)
[2021-12-17] MEDS ORDERED: Meropenem 1 GM in Sodium Chloride 0.9% 100 ML IVPB SCH (22:00)
[2021-12-18 04:47] LABS: #Basophils 0.1 thou/uL (0.0-0.2); #Eosinphils 0.2 thou/uL (0.0-0.7); #Lymphocytes 1.7 thou/uL (1.20-3.40); #Monocytes 0.6 thou/uL (0.11-0.59); %Basophils 0.8 % (0.0-1.0); %Eosinophils 3.5 % (0.0-10.0); %Lymphocytes 26.1 % (21.0-51.0); %Monocytes 8.7 % (0.0-10.0); %Neutrophils 60.8 % (42.0-75.0); Hemoglobin 8.9 g/dL (12.0-16.0); Mean Corpuscular HGB CONC 30.4 g/dL (32.0-36.0); Mean Corpuscular Hemoglobin 26.1 pg (27.0-31.0); Mean Corpuscular Volume 85.9 fL (78.0-98.0); Mean Platelet Volume 6.5 fL (7.4-10.4); Platelet Count 329 thou/uL (130-400); RBC Distribution Width 16.5 % (11.5-14.5); White Blood Cell (WBC) Count 6.5 thou/uL (4.8-10.8)
[2021-12-18 05:09] LABS: Anion Gap 13 mmol/L (10-20); BUN (Urea Nitrogen) 15 mg/dL (9.8-20.1); Calc. Creatinine Clearance 48 mL/min (70-130); Calcium 8.9 mg/dL (7.8-10.44); Carbon Dioxide 24 mmol/L (23-31); Chloride 109 mmol/L (98-107); Estimated GFR 63; Glucose 96 mg/dL (83-110); Potassium 3.2 mmol/L (3.5-5.1); Sodium 143 mmol/L (136-145)
[2021-12-18] MEDS ORDERED: Mometasone/Formoterol 200/5 60 PUFF INH SCH (06:30)
[2021-12-18] MEDS ORDERED: Amlodipine 5 MG TAB PO SCH (09:00)
[2021-12-18] MEDS ORDERED: Potassium Chloride 10 MEQ TAB PO SCH (09:00)
[2021-12-18] MEDS ORDERED: cefTRIAXone\\ROCEPHIN 1 GM in Sodium Chloride 0.9% 100 ML IVPB SCH (09:00)
[2021-12-18] MEDS ORDERED: DULoxetine 30 MG CAP PO SCH (09:00)
[2021-12-18] MEDS ORDERED: Aspirin 81 mg Enteric Coated Tablet PO SCH (09:00)
[2021-12-18] MEDS ORDERED: Amiodarone 200 MG TAB PO SCH (09:00)
[2021-12-18] MEDS: Heparin 5,000 UNITS/ML VIAL SC SCH (09:48)
[2021-12-18] MEDS: Gabapentin 300 MG CAP PO SCH (09:48)
[2021-12-18] MEDS: Lorazepam 0.5 MG TAB PO SCH ×2 (09:49→15:40)
[2021-12-18] MEDS ORDERED: Azithromycin 500 MG in Sodium Chloride 0.9% 250 ML 250 ML IVPB SCH (10:00)
[2021-12-18] MEDS ORDERED: cefTRIAXone\\ROCEPHIN 1 GM VIAL ONE (11:21)
[2021-12-18 11:39] VITALS: BMI 24.3
[2021-12-18 15:51] VITALS: BP 156/69; TEMP 98.5
== END 2021-12-18 18:05 | disposition home or self-care (01) ==
LOC: INTOOBSV 16:55 → T4-B 16:55 → 2NO 19:52
PROVIDERS: ADMIT Internal Medicine; ATTEND Internal Medicine
DX: J96.01 Acute respiratory failure with hypoxia (principal); R00.1 Bradycardia, unspecified; I48.0 Paroxysmal atrial fibrillation; J44.9 Chronic obstructive pulmonary disease, unspecified; F03.90 Unspecified dementia, unspecified severity, without behavioral disturbance, psychotic disturbance, mood disturbance, and anxiety; N39.0 Urinary tract infection, site not specified; E78.5 Hyperlipidemia, unspecified; I10 Essential (primary) hypertension; N17.9 Acute kidney failure, unspecified; K21.9 Gastro-esophageal reflux disease without esophagitis; Z86.73 Personal history of transient ischemic attack (TIA), and cerebral infarction without residual deficits; Z79.82 Long term (current) use of aspirin; Z79.899 Other long term (current) drug therapy; Z88.5 Allergy status to narcotic agent; Z88.8 Allergy status to other drugs, medicaments and biological substances; Z91.041 Radiographic dye allergy status
CPT/HCPCS: 36415; 80048; 85025; 87086; 94640; G0378; J0696; J1644; J3490; J7620

== ENCOUNTER 2022-02-01 09:13 | Emergency (ER) | payer MEDICARE, OTHER ==
[2022-02-01 10:47] LABS: #Basophils 0.1 thou/uL (0.0-0.2); #Eosinphils 0.5 thou/uL (0.0-0.7); #Lymphocytes 2.1 thou/uL (1.20-3.40); #Monocytes 0.4 thou/uL (0.11-0.59); #Neutrophils 8.6 thou/uL (1.40-6.50); %Basophils 0.5 % (0.0-1.0); %Eosinophils 4.3 % (0.0-10.0); %Lymphocytes 18.1 % (21.0-51.0); %Monocytes 3.3 % (0.0-10.0); %Neutrophils 73.8 % (42.0-75.0); Hemoglobin 11.1 g/dL (12.0-16.0); Mean Corpuscular HGB CONC 30.3 g/dL (32.0-36.0); Mean Corpuscular Hemoglobin 25.9 pg (27.0-31.0); Mean Corpuscular Volume 85.7 fL (78.0-98.0); Mean Platelet Volume 7.2 fL (7.4-10.4); Platelet Count 315 thou/uL (130-400); RBC Distribution Width 18.4 % (11.5-14.5); Red Blood Cell (RBC) Count 4.28 mill/uL (4.20-5.40); White Blood Cell (WBC) Count 11.6 thou/uL (4.8-10.8)
[2022-02-01 10:49] LABS: Bilirubin Negative (Negative); Blood, Urine Negative (Negative); Clarity Turbid (Clear); Glucose, Urine (Dipstick) Normal (Negative); Ketone, Urine Negative (Negative); Leukocyte 75 Leu/uL (Negative); Nitrite 2+ (Negative); Protein, Urine (Dipstick) Negative (Neg-Trace); RBC/HPF None Seen HPF (0-3); Specific Gravity, Urine 1.012 (1.002-1.036); Squamous Epithelial None Seen HPF (0-3); Urobilinogen Normal mg/dL (Less than 2); WBC/HPF 0-3 HPF (0-3); pH, Urine 7.5 (5.0-9.0)
[2022-02-01 10:50] LABS: Bacteria/HPF 1+ HPF (None Seen)
[2022-02-01 10:54] LABS: Anion Gap 17 mmol/L (10-20); BUN (Urea Nitrogen) 21 mg/dL (9.8-20.1); Calc. Creatinine Clearance 0 mL/min (70-130); Carbon Dioxide 20 mmol/L (23-31); Chloride 108 mmol/L (98-107); Potassium 3.9 mmol/L (3.5-5.1); Sodium 141 mmol/L (136-145)
[2022-02-01 10:55] LABS: ALT (SGPT) 15 U/L (8-55); AST (SGOT) 18 U/L (5-34); Albumin 4.1 g/dL (3.4-4.8); Alkaline Phosphatase 149 U/L (40-110); Bilirubin, Total 0.6 mg/dL (0.2-1.2); Calcium 8.8 mg/dL (7.8-10.44); Estimated GFR 53; Globulin 3.4 g/dL (2.4-3.5); Glucose 153 mg/dL (83-110); Protein, Total 7.5 g/dL (5.8-8.1)
[2022-02-01 12:13] LABS: SARS-CoV-2 NAA Rapid Test Not Detected (NotDetected)
== END 2022-02-01 13:05 | disposition home or self-care (01) ==
LOC: ERS 09:13
DX: N39.0 Urinary tract infection, site not specified (principal); I10 Essential (primary) hypertension; E78.5 Hyperlipidemia, unspecified; I48.91 Unspecified atrial fibrillation; K21.9 Gastro-esophageal reflux disease without esophagitis; J44.9 Chronic obstructive pulmonary disease, unspecified; Z20.822 Contact with and (suspected) exposure to COVID-19
CPT/HCPCS: 0240U; 71045; 80053; 83880; 84484; 85025; 93005; 99285; 36415; 81003; 81015

== ENCOUNTER 2022-04-10 18:09 | Inpatient (IN) | payer OTHER, MEDICAID ==
[2022-04-10 19:07] LABS: #Eosinphils 1.1 thou/uL (0.0-0.7); #Lymphocytes 2.3 thou/uL (1.20-3.40); #Monocytes 0.8 thou/uL (0.11-0.59); #Neutrophils 10.6 thou/uL (1.40-6.50); %Basophils 0.2 % (0.0-1.0); %Eosinophils 7.4 % (0.0-10.0); %Lymphocytes 15.2 % (21.0-51.0); %Monocytes 5.7 % (0.0-10.0); %Neutrophils 71.5 % (42.0-75.0); Hemoglobin 11.7 g/dL (12.0-16.0); Mean Corpuscular HGB CONC 31.7 g/dL (32.0-36.0); Mean Corpuscular Hemoglobin 27.5 pg (27.0-31.0); Mean Corpuscular Volume 86.7 fl (78.0-98.0); Mean Platelet Volume 7.1 fL (7.4-10.4); Platelet Count 290 10x3/uL (130-400); RBC Distribution Width 15.3 % (11.5-14.5); Red Blood Cell (RBC) Count 4.25 mill/uL (4.20-5.40); White Blood Cell (WBC) Count 14.9 10x3/uL (4.8-10.8)
[2022-04-10 19:30] LABS: ALT (SGPT) 10 U/L (8-55); AST (SGOT) 14 U/L (5-34); Alkaline Phosphatase 157 U/L (40-110); Anion Gap 15 mmol/L (10-20); BUN (Urea Nitrogen) 20 mg/dL (9.8-20.1); Bilirubin, Total 0.5 mg/dL (0.2-1.2); Calc. Creatinine Clearance 0 mL/min (70-130); Calcium 8.7 mg/dL (7.8-10.44); Carbon Dioxide 25 mmol/L (23-31); Chloride 104 mmol/L (98-107); Estimated GFR 62; Globulin 3.7 g/dL (2.4-3.5); Glucose 156 mg/dL (83-110); Potassium 3.5 mmol/L (3.5-5.1); Protein, Total 7.7 g/dL (5.8-8.1); Sodium 140 mmol/L (136-145)
[2022-04-10] MEDS ORDERED: Acetaminophen 500 MG TAB ONE (19:48)
[2022-04-10 19:52] LABS: Bacteria/HPF 4+ HPF (None Seen); Bilirubin Negative (Negative); Blood, Urine 1+ (Negative); Clarity Turbid (Clear); Glucose, Urine (Dipstick) Normal (Negative); Ketone, Urine Negative (Negative); Leukocyte 500 Leu/uL (Negative); Nitrite 1+ (Negative); Protein, Urine (Dipstick) 50 mg/dL (Neg-Trace); Renal Epithelial 0-3 HPF (None Seen); Specific Gravity, Urine 1.013 (1.002-1.036); Squamous Epithelial 0-3 HPF (0-3); Urobilinogen Normal mg/dL (Less than 2); WBC/HPF Greater than 50 HPF (0-3); pH, Urine 6.5 (5.0-9.0)
[2022-04-10] MEDS ORDERED: cefTRIAXone\\ROCEPHIN 1 GM VIAL ONE (20:07)
[2022-04-10] MEDS ORDERED: Vancomycin 1 GM/200 ML (FROZEN) BAG ONE (21:01)
[2022-04-10] MEDS ORDERED: Senokot S 8.6-50 MG TAB PO PRN (21:22)
[2022-04-10] MEDS ORDERED: Acetaminophen 325 MG TAB PO PRN (21:22)
[2022-04-10] MEDS ORDERED: Lactated Ringer's 1,000 ML IV SCH (21:30)
[2022-04-10 23:37] LABS: SARS-CoV-2 NAA Rapid Test Not Detected (NotDetected)
[2022-04-11] MEDS: Mometasone/Formoterol 200/5 60 PUFF INH SCH ×2 (07:39→18:09)
[2022-04-11 08:25] LABS: Anion Gap 17 mmol/L (10-20); BUN (Urea Nitrogen) 19 mg/dL (9.8-20.1); Calc. Creatinine Clearance 53 mL/min (70-130); Calcium 8.8 mg/dL (7.8-10.44); Carbon Dioxide 23 mmol/L (23-31); Chloride 106 mmol/L (98-107); Estimated GFR 66; Glucose 164 mg/dL (83-110); Sodium 142 mmol/L (136-145)
[2022-04-11 08:31] LABS: #Lymphocytes 0.5 thou/uL (1.20-3.40); #Monocytes 0.1 thou/uL (0.11-0.59); #Neutrophils 6.9 thou/uL (1.40-6.50); %Basophils 0.2 % (0.0-1.0); %Eosinophils 0.2 % (0.0-10.0); %Lymphocytes 6.5 % (21.0-51.0); %Monocytes 1.2 % (0.0-10.0); %Neutrophils 91.8 % (42.0-75.0); Hemoglobin 10.8 g/dL (12.0-16.0); Mean Corpuscular HGB CONC 29.3 g/dL (32.0-36.0); Mean Corpuscular Hemoglobin 25.8 pg (27.0-31.0); Mean Corpuscular Volume 87.9 fl (78.0-98.0); Mean Platelet Volume 7.4 fL (7.4-10.4); Platelet Count 270 10x3/uL (130-400); RBC Distribution Width 15.3 % (11.5-14.5); Red Blood Cell (RBC) Count 4.21 mill/uL (4.20-5.40); White Blood Cell (WBC) Count 7.6 10x3/uL (4.8-10.8)
[2022-04-11] MEDS: Famotidine 20 MG TAB PO SCH ×2 (08:57→09:11)
[2022-04-11] MEDS: DULoxetine 30 MG CAP PO SCH ×2 (08:57→17:51)
[2022-04-11] MEDS: Furosemide 20 MG TAB PO SCH ×2 (08:58→17:51)
[2022-04-11] MEDS: Amiodarone 200 MG TAB PO SCH ×2 (08:58→09:11)
[2022-04-11] MEDS: Amlodipine 5 MG TAB PO SCH ×2 (08:58→09:11)
[2022-04-11] MEDS: Apixaban 5 MG TAB PO SCH ×3 (08:58→21:52)
[2022-04-11] MEDS: Aspirin 81 mg Enteric Coated Tablet PO SCH ×2 (08:59→17:51)
[2022-04-11] MEDS ORDERED: methylPREDNISolone Sod Succ 40 MG VIAL IVP SCH (09:00)
[2022-04-11] MEDS ORDERED: cefTRIAXone\\ROCEPHIN 1 GM in Sodium Chloride 0.9% 100 ML IVPB SCH (09:00)
[2022-04-11] MEDS ORDERED: Haloperidol Lactate 5 MG/ML VIAL ONE (12:31)
[2022-04-11] MEDS ORDERED: Haloperidol Lactate 5 MG/ML VIAL IM SCH (12:45)
[2022-04-11] MEDS ORDERED: Lorazepam 2 MG/ML VIAL SLOW IVP SCH (14:00)
[2022-04-11] MEDS ORDERED: Ziprasidone 20 MG VIAL IM SCH (14:00)
[2022-04-11] MEDS ORDERED: Piperacillin/Tazobactam 3.375 GM in Sodium Chloride 0.9% 100 ML IVPB SCH ×2 (16:45→18:00)
[2022-04-11] MEDS ORDERED: LORazepam 2 MG/ML SYR.(CARPUJECT) IVP PRN (17:27)
[2022-04-11] MEDS ORDERED: OLANZapine 5 MG TAB PO SCH (21:00)
[2022-04-11] MEDS: Atorvastatin Calcium 40 MG TAB PO SCH (21:52)
[2022-04-11] MEDS: Gabapentin 300 MG CAP PO SCH (21:52)
[2022-04-11] MEDS: Divalproex Sodium 125 mg Sprinkle Capsule PO SCH (21:52)
[2022-04-11] MEDS: Piperacillin/Tazobactam 3.375 GM in Sodium Chloride 0.9% 100 ML IVPB SCH (21:52)
[2022-04-11] MEDS ORDERED: Sterile Water 10 ML VIAL FS PRN (23:15)
[2022-04-11] MEDS ORDERED: OLANZapine 10 MG VIAL IM SCH (23:15)
[2022-04-12] MEDS: Piperacillin/Tazobactam 3.375 GM in Sodium Chloride 0.9% 100 ML IVPB SCH ×3 (05:22→22:15)
[2022-04-12] MEDS: Mometasone/Formoterol 200/5 60 PUFF INH SCH ×2 (07:07→19:16)
[2022-04-12 07:37] LABS: Hemoglobin 10.6 g/dL (12.0-16.0); Mean Corpuscular HGB CONC 28.5 g/dL (32.0-36.0); Mean Corpuscular Hemoglobin 25.4 pg (27.0-31.0); Mean Corpuscular Volume 89.3 fl (78.0-98.0); Mean Platelet Volume 7.3 fL (7.4-10.4); Platelet Count 316 10x3/uL (130-400); RBC Distribution Width 15.8 % (11.5-14.5); Red Blood Cell (RBC) Count 4.18 mill/uL (4.20-5.40); White Blood Cell (WBC) Count 17.6 10x3/uL (4.8-10.8)
[2022-04-12 07:55] LABS: Anion Gap 15 mmol/L (10-20); BUN (Urea Nitrogen) 20 mg/dL (9.8-20.1); Calc. Creatinine Clearance 57 mL/min (70-130); Calcium 8.8 mg/dL (7.8-10.44); Carbon Dioxide 26 mmol/L (23-31); Chloride 106 mmol/L (98-107); Estimated GFR 72; Glucose 96 mg/dL (83-110); Potassium 3.5 mmol/L (3.5-5.1); Sodium 143 mmol/L (136-145)
[2022-04-12 08:00] LABS: #Lymphocytes 1.5 thou/uL (1.20-3.40); #Monocytes 1.1 thou/uL (0.11-0.59); %Basophils 0.1 % (0.0-1.0); %Eosinophils 0.2 % (0.0-10.0); %Lymphocytes 8.4 % (21.0-51.0); %Monocytes 6.2 % (0.0-10.0); %Neutrophils 85.1 % (42.0-75.0); Band 6 % (5-11); Lymphocytes 9 % (21-51); MDiff Complete? YES; Monocytes 5 % (0-10); Neutrophil 80 % (42-75); Platelet Morphology Comment Appears Adequate; Polychromasia SLIGHT = 2-3 cells (100X) (0-2/hpf)
[2022-04-12] MEDS: methylPREDNISolone Sod Succ 40 MG VIAL IVP SCH (08:19)
[2022-04-12] MEDS: Pantoprazole 40 MG VIAL IVP SCH (08:20)
[2022-04-12] MEDS: DULoxetine 30 MG CAP PO SCH (08:21)
[2022-04-12] MEDS: Divalproex Sodium 125 mg Sprinkle Capsule PO SCH ×3 (08:22→22:06)
[2022-04-12] MEDS: Aspirin 81 mg Enteric Coated Tablet PO SCH (08:22)
[2022-04-12] MEDS: Furosemide 20 MG TAB PO SCH (08:22)
[2022-04-12] MEDS: Amiodarone 200 MG TAB PO SCH (08:22)
[2022-04-12] MEDS: Apixaban 5 MG TAB PO SCH ×2 (08:22→22:04)
[2022-04-12] MEDS: Amlodipine 5 MG TAB PO SCH (08:22)
[2022-04-12] MEDS: Gabapentin 300 MG CAP PO SCH ×2 (08:32→22:04)
[2022-04-12 12:03] VITALS: BMI 20.9
[2022-04-12] MEDS: Atorvastatin Calcium 40 MG TAB PO SCH (22:04)
[2022-04-13] MEDS: Piperacillin/Tazobactam 3.375 GM in Sodium Chloride 0.9% 100 ML IVPB SCH ×3 (06:00→20:39)
[2022-04-13] MEDS: Mometasone/Formoterol 200/5 60 PUFF INH SCH ×2 (07:01→18:53)
[2022-04-13 07:17] LABS: Chloride 106 mmol/L (98-107); Sodium 141 mmol/L (136-145)
[2022-04-13 07:18] LABS: Anion Gap 12 mmol/L (10-20); BUN (Urea Nitrogen) 21 mg/dL (9.8-20.1); Calc. Creatinine Clearance 56 mL/min (70-130); Calcium 8.7 mg/dL (7.8-10.44); Carbon Dioxide 26 mmol/L (23-31); Estimated GFR 70; Glucose 104 mg/dL (83-110)
[2022-04-13 07:21] LABS: #Eosinphils 0.2 thou/uL (0.0-0.7); #Lymphocytes 2.2 thou/uL (1.20-3.40); #Monocytes 1.3 thou/uL (0.11-0.59); #Neutrophils 12.3 thou/uL (1.40-6.50); %Basophils 0.1 % (0.0-1.0); %Lymphocytes 13.5 % (21.0-51.0); %Monocytes 8.2 % (0.0-10.0); %Neutrophils 77.3 % (42.0-75.0); Hemoglobin 11.9 g/dL (12.0-16.0); Mean Corpuscular HGB CONC 30.5 g/dL (32.0-36.0); Mean Corpuscular Hemoglobin 26.5 pg (27.0-31.0); Mean Corpuscular Volume 86.8 fl (78.0-98.0); Mean Platelet Volume 7.2 fL (7.4-10.4); Platelet Count 338 10x3/uL (130-400); RBC Distribution Width 15.9 % (11.5-14.5); Red Blood Cell (RBC) Count 4.51 mill/uL (4.20-5.40)
[2022-04-13] MEDS: methylPREDNISolone Sod Succ 40 MG VIAL IVP SCH (08:17)
[2022-04-13] MEDS: Pantoprazole 40 MG VIAL IVP SCH (08:18)
[2022-04-13] MEDS: Amlodipine 5 MG TAB PO SCH (08:20)
[2022-04-13] MEDS: Apixaban 5 MG TAB PO SCH ×2 (08:20→20:39)
[2022-04-13] MEDS: Divalproex Sodium 125 mg Sprinkle Capsule PO SCH ×3 (08:20→20:39)
[2022-04-13] MEDS: DULoxetine 30 MG CAP PO SCH (08:20)
[2022-04-13] MEDS: Gabapentin 300 MG CAP PO SCH ×2 (08:20→20:38)
[2022-04-13] MEDS: Aspirin 81 mg Enteric Coated Tablet PO SCH (08:20)
[2022-04-13] MEDS: Furosemide 20 MG TAB PO SCH (08:20)
[2022-04-13] MEDS: Amiodarone 200 MG TAB PO SCH (08:20)
[2022-04-13] MEDS: Lorazepam 2 MG/ML VIAL SLOW IVP PRN ×2 (12:30→22:11)
[2022-04-13] MEDS: Potassium Chloride 20 MEQ TAB PO SCH (16:29)
[2022-04-13] MEDS: Atorvastatin Calcium 40 MG TAB PO SCH (20:39)
[2022-04-14] MEDS: Piperacillin/Tazobactam 3.375 GM in Sodium Chloride 0.9% 100 ML IVPB SCH ×2 (05:07→13:00)
[2022-04-14 07:18] LABS: Anion Gap 15 mmol/L (10-20); BUN (Urea Nitrogen) 22 mg/dL (9.8-20.1); Calc. Creatinine Clearance 54 mL/min (70-130); Calcium 8.7 mg/dL (7.8-10.44); Carbon Dioxide 25 mmol/L (23-31); Chloride 109 mmol/L (98-107); Estimated GFR 67; Glucose 128 mg/dL (83-110); Potassium 3.6 mmol/L (3.5-5.1); Sodium 145 mmol/L (136-145)
[2022-04-14] MEDS: Amlodipine 5 MG TAB PO SCH (08:20)
[2022-04-14] MEDS: Apixaban 5 MG TAB PO SCH ×2 (08:20→20:02)
[2022-04-14] MEDS: Furosemide 20 MG TAB PO SCH (08:20)
[2022-04-14] MEDS: Potassium Chloride 20 MEQ TAB PO SCH ×2 (08:20→16:43)
[2022-04-14] MEDS: Aspirin 81 mg Enteric Coated Tablet PO SCH (08:20)
[2022-04-14] MEDS: DULoxetine 30 MG CAP PO SCH (08:20)
[2022-04-14] MEDS: Gabapentin 300 MG CAP PO SCH ×2 (08:21→20:01)
[2022-04-14] MEDS: Amiodarone 200 MG TAB PO SCH (08:21)
[2022-04-14] MEDS: Divalproex Sodium 125 mg Sprinkle Capsule PO SCH ×3 (08:27→20:01)
[2022-04-14] MEDS ORDERED: FLU VACC QS2022-23(65YR UP)/PF 240 MCG/0.7 ML SYRINGE IM ONE (09:00)
[2022-04-14] MEDS: Mometasone/Formoterol 200/5 60 PUFF INH SCH ×2 (10:16→18:13)
[2022-04-14] MEDS: Lorazepam 2 MG/ML VIAL SLOW IVP PRN (12:31)
[2022-04-14] MEDS: Atorvastatin Calcium 40 MG TAB PO SCH (20:02)
[2022-04-15 08:04] VITALS: BP 143/84; TEMP 98.5
[2022-04-15 08:19] LABS: #Eosinphils 0.1 thou/uL (0.0-0.7); #Lymphocytes 1.4 thou/uL (1.20-3.40); #Monocytes 0.9 thou/uL (0.11-0.59); #Neutrophils 8.2 thou/uL (1.40-6.50); %Basophils 0.3 % (0.0-1.0); %Eosinophils 0.9 % (0.0-10.0); %Lymphocytes 12.9 % (21.0-51.0); %Monocytes 8.3 % (0.0-10.0); %Neutrophils 77.7 % (42.0-75.0); Hemoglobin 12.7 g/dL (12.0-16.0); Mean Corpuscular HGB CONC 30.4 g/dL (32.0-36.0); Mean Corpuscular Hemoglobin 26.5 pg (27.0-31.0); Mean Corpuscular Volume 87.2 fl (78.0-98.0); Mean Platelet Volume 7.1 fL (7.4-10.4); Platelet Count 287 10x3/uL (130-400); RBC Distribution Width 15.7 % (11.5-14.5); White Blood Cell (WBC) Count 10.6 10x3/uL (4.8-10.8)
[2022-04-15 08:36] LABS: Anion Gap 15 mmol/L (10-20); BUN (Urea Nitrogen) 19 mg/dL (9.8-20.1); Calc. Creatinine Clearance 54 mL/min (70-130); Calcium 8.9 mg/dL (7.8-10.44); Carbon Dioxide 24 mmol/L (23-31); Chloride 111 mmol/L (98-107); Estimated GFR 68; Glucose 130 mg/dL (83-110); Potassium 3.8 mmol/L (3.5-5.1); Sodium 146 mmol/L (136-145)
[2022-04-15] MEDS: DULoxetine 30 MG CAP PO SCH (10:07)
[2022-04-15] MEDS: Divalproex Sodium 125 mg Sprinkle Capsule PO SCH ×2 (10:07→16:06)
[2022-04-15] MEDS: Furosemide 20 MG TAB PO SCH (10:07)
[2022-04-15] MEDS: Aspirin 81 mg Enteric Coated Tablet PO SCH (10:07)
[2022-04-15] MEDS: Apixaban 5 MG TAB PO SCH (10:07)
[2022-04-15] MEDS: Amlodipine 5 MG TAB PO SCH (10:08)
[2022-04-15] MEDS: Amiodarone 200 MG TAB PO SCH (10:08)
[2022-04-15] MEDS: Gabapentin 300 MG CAP PO SCH (10:08)
[2022-04-15] MEDS: Mometasone/Formoterol 200/5 60 PUFF INH SCH ×2 (10:25→18:24)
[2022-04-15] MEDS ORDERED: FLU VACC QS2022-23(65YR UP)/PF 240 MCG/0.7 ML SYRINGE IM ONE (18:15)
== END 2022-04-15 20:05 | DRG 871 ==
LOC: ERS 18:09 → T4-B 20:23
PROVIDERS: ADMIT Internal Medicine; ATTEND Internal Medicine
DX: A41.51 Sepsis due to Escherichia coli [E. coli] (principal); G93.41 Metabolic encephalopathy; J18.9 Pneumonia, unspecified organism; J96.01 Acute respiratory failure with hypoxia; N39.0 Urinary tract infection, site not specified; J44.0 Chronic obstructive pulmonary disease with (acute) lower respiratory infection; J44.1 Chronic obstructive pulmonary disease with (acute) exacerbation; F05 Delirium due to known physiological condition; Z20.822 Contact with and (suspected) exposure to COVID-19; F41.9 Anxiety disorder, unspecified; F32.A Depression, unspecified; I10 Essential (primary) hypertension; K21.9 Gastro-esophageal reflux disease without esophagitis; I48.91 Unspecified atrial fibrillation; Z90.49 Acquired absence of other specified parts of digestive tract; Z90.710 Acquired absence of both cervix and uterus; Z88.5 Allergy status to narcotic agent; Z91.041 Radiographic dye allergy status; Z88.8 Allergy status to other drugs, medicaments and biological substances; Z79.899 Other long term (current) drug therapy
CPT/HCPCS: 36415; 51701; 71045; 80048; 80053; 81003; 81015; 83605; 83880; 84484; 85025; 87040; 87077; 87086; 87186; 90471; 90662; 93005; 93010; 94640; 96365; 96375; C9113; G0008; J0696; J1630; J2060; J2543; J2920; J3370-JW; J3490; J7120; J7620

== ENCOUNTER 2022-05-11 12:35 | Inpatient (IN) | payer OTHER, MEDICAID ==
[2022-05-11 13:21] LABS: ALT (SGPT) 9 U/L (8-55); AST (SGOT) 14 U/L (5-34); Alkaline Phosphatase 154 U/L (40-110); Anion Gap 17 mmol/L (10-20); BUN (Urea Nitrogen) 18 mg/dL (9.8-20.1); Calc. Creatinine Clearance 0 mL/min (70-130); Calcium 9.1 mg/dL (7.8-10.44); Carbon Dioxide 24 mmol/L (23-31); Chloride 106 mmol/L (98-107); Estimated GFR 51; Globulin 4.1 g/dL (2.4-3.5); Glucose 78 mg/dL (83-110); Potassium 3.8 mmol/L (3.5-5.1); Protein, Total 8.1 g/dL (5.8-8.1); Sodium 143 mmol/L (136-145)
[2022-05-11 13:24] LABS: INR-International Normal Ratio 0.9; Prothrombin Time 12.9 sec (12.0-14.7)
[2022-05-11 13:28] LABS: Bilirubin, Total 0.6 mg/dL (0.2-1.2)
[2022-05-11] MEDS ORDERED: Iopamidol-370 76% 500 ML 1 ML ONE (13:29)
[2022-05-11 13:31] LABS: PTT 29.3 sec (22.9-36.1)
[2022-05-11 13:59] LABS: #Eosinphils 0.4 thou/uL (0.0-0.7); #Lymphocytes 2.7 thou/uL (1.20-3.40); #Monocytes 1.2 thou/uL (0.11-0.59); #Neutrophils 5.8 thou/uL (1.40-6.50); %Basophils 0.2 % (0.0-1.0); %Eosinophils 3.5 % (0.0-10.0); %Lymphocytes 26.8 % (21.0-51.0); %Monocytes 11.8 % (0.0-10.0); %Neutrophils 57.6 % (42.0-75.0); Hemoglobin 12.4 g/dL (12.0-16.0); Mean Corpuscular HGB CONC 30.1 g/dL (32.0-36.0); Mean Corpuscular Hemoglobin 25.9 pg (27.0-31.0); Mean Corpuscular Volume 85.9 fl (78.0-98.0); Mean Platelet Volume 7.1 fL (7.4-10.4); Platelet Count 282 10x3/uL (130-400); RBC Distribution Width 15.5 % (11.5-14.5); Red Blood Cell (RBC) Count 4.79 mill/uL (4.20-5.40); White Blood Cell (WBC) Count 10.1 10x3/uL (4.8-10.8)
[2022-05-11] MEDS ORDERED: cefTRIAXone\\ROCEPHIN 1 GM VIAL ONE (15:30)
[2022-05-11 15:47] LABS: Bilirubin Negative (Negative); Blood, Urine 2+ (Negative); Clarity Extra Turbid (Clear); Glucose, Urine (Dipstick) Normal (Negative); Ketone, Urine Negative (Negative); Leukocyte 500 Leu/uL (Negative); Nitrite 1+ (Negative); Protein, Urine (Dipstick) 100 mg/dL (Neg-Trace); Specific Gravity, Urine 1.027 (1.002-1.036); Urobilinogen Normal mg/dL (Less than 2); WBC/HPF Greater than 50 HPF (0-3)
[2022-05-11 15:55] LABS: Bacteria/HPF 2+ HPF (None Seen)
[2022-05-11] MEDS ORDERED: hydrALAZINE 20 MG/ML VIAL SLOW IVP PRN (18:42)
[2022-05-11 18:59] LABS: SARS-CoV-2 NAA Rapid Test Not Detected (NotDetected)
[2022-05-11] MEDS: Sodium Chloride 0.9% 1,000 ML IV SCH (21:18)
[2022-05-11] MEDS: Apixaban 5 MG TAB PO SCH (21:18)
[2022-05-12 02:24] VITALS: BMI 22.0
[2022-05-12 06:58] LABS: #Eosinphils 0.2 thou/uL (0.0-0.7); #Lymphocytes 1.3 thou/uL (1.20-3.40); #Monocytes 0.8 thou/uL (0.11-0.59); #Neutrophils 4.6 thou/uL (1.40-6.50); %Basophils 0.4 % (0.0-1.0); %Eosinophils 3.4 % (0.0-10.0); %Lymphocytes 18.8 % (21.0-51.0); %Monocytes 11.6 % (0.0-10.0); %Neutrophils 65.9 % (42.0-75.0); Hemoglobin 11.2 g/dL (12.0-16.0); Mean Corpuscular HGB CONC 30.5 g/dL (32.0-36.0); Mean Corpuscular Volume 85.2 fl (78.0-98.0); Mean Platelet Volume 7.2 fL (7.4-10.4); Platelet Count 255 10x3/uL (130-400); RBC Distribution Width 15.2 % (11.5-14.5)
[2022-05-12 07:19] LABS: Anion Gap 14 mmol/L (10-20); BUN (Urea Nitrogen) 14 mg/dL (9.8-20.1); Calc. Creatinine Clearance 53 mL/min (70-130); Calcium 8.7 mg/dL (7.8-10.44); Carbon Dioxide 23 mmol/L (23-31); Chloride 109 mmol/L (98-107); Estimated GFR 69; Glucose 107 mg/dL (83-110); Potassium 3.4 mmol/L (3.5-5.1); Sodium 143 mmol/L (136-145)
[2022-05-12] MEDS: Sodium Chloride 0.9% 1,000 ML IV SCH ×2 (08:21→19:53)
[2022-05-12] MEDS: Apixaban 5 MG TAB PO SCH ×2 (08:23→19:53)
[2022-05-12] MEDS: Potassium Chloride 20 MEQ TAB PO SCH ×2 (10:08→13:06)
[2022-05-12] MEDS: cefTRIAXone\\ROCEPHIN 1 GM in Sodium Chloride 0.9% 100 ML IVPB SCH (15:23)
[2022-05-13] MEDS: Amiodarone 200 MG TAB PO SCH (08:09)
[2022-05-13] MEDS: Apixaban 5 MG TAB PO SCH ×2 (08:09→19:23)
[2022-05-13] MEDS: Sodium Chloride 0.9% 1,000 ML IV SCH (11:15)
[2022-05-13] MEDS: cefTRIAXone\\ROCEPHIN 1 GM in Sodium Chloride 0.9% 100 ML IVPB SCH (15:48)
[2022-05-13] MEDS: Divalproex Sodium 125 mg Sprinkle Capsule PO SCH ×2 (15:50→19:23)
[2022-05-13] MEDS: Acetaminophen 500 MG TAB PO PRN (17:31)
[2022-05-13] MEDS: OLANZapine 5 MG TAB PO SCH (19:23)
[2022-05-14] MEDS: Sodium Chloride 0.9% 1,000 ML IV SCH ×2 (00:12→14:35)
[2022-05-14] MEDS: DULoxetine 30 MG CAP PO SCH (07:49)
[2022-05-14] MEDS: Furosemide 20 MG TAB PO SCH (07:50)
[2022-05-14] MEDS: Acetaminophen 500 MG TAB PO PRN ×2 (07:50→20:13)
[2022-05-14] MEDS: Apixaban 5 MG TAB PO SCH ×2 (07:50→20:14)
[2022-05-14] MEDS: Divalproex Sodium 125 mg Sprinkle Capsule PO SCH ×3 (07:50→20:14)
[2022-05-14] MEDS: Amiodarone 200 MG TAB PO SCH (07:50)
[2022-05-14] MEDS: cefTRIAXone\\ROCEPHIN 1 GM in Sodium Chloride 0.9% 100 ML IVPB SCH (14:34)
[2022-05-14] MEDS: OLANZapine 5 MG TAB PO SCH (20:14)
[2022-05-14] MEDS: Cefdinir 300 MG CAP PO SCH (20:48)
[2022-05-15] MEDS: Sodium Chloride 0.9% 1,000 ML IV SCH ×2 (04:26→15:39)
[2022-05-15] MEDS: Cefdinir 300 MG CAP PO SCH (10:39)
[2022-05-15] MEDS: Apixaban 5 MG TAB PO SCH ×2 (10:39→20:33)
[2022-05-15] MEDS: Amiodarone 200 MG TAB PO SCH (10:40)
[2022-05-15] MEDS: DULoxetine 30 MG CAP PO SCH (10:40)
[2022-05-15] MEDS: Furosemide 20 MG TAB PO SCH (10:40)
[2022-05-15] MEDS: Divalproex Sodium 125 mg Sprinkle Capsule PO SCH ×3 (10:40→20:33)
[2022-05-15] MEDS: cefTRIAXone\\ROCEPHIN 1 GM in Sodium Chloride 0.9% 100 ML IVPB SCH (20:33)
[2022-05-15] MEDS: Acetaminophen 500 MG TAB PO PRN (20:33)
[2022-05-15] MEDS: OLANZapine 5 MG TAB PO SCH (20:36)
[2022-05-16] MEDS: Amiodarone 200 MG TAB PO SCH (09:22)
[2022-05-16] MEDS: Apixaban 5 MG TAB PO SCH ×2 (09:22→20:36)
[2022-05-16] MEDS: Furosemide 20 MG TAB PO SCH (09:22)
[2022-05-16] MEDS: DULoxetine 30 MG CAP PO SCH (09:22)
[2022-05-16] MEDS: Divalproex Sodium 125 mg Sprinkle Capsule PO SCH ×3 (09:22→20:36)
[2022-05-16] MEDS: Sodium Chloride 0.9% 1,000 ML IV SCH ×2 (09:24→20:43)
[2022-05-16] MEDS: OLANZapine 5 MG TAB PO SCH (20:36)
[2022-05-16] MEDS: cefTRIAXone\\ROCEPHIN 1 GM in Sodium Chloride 0.9% 100 ML IVPB SCH (20:37)
[2022-05-17] MEDS: DULoxetine 30 MG CAP PO SCH (09:26)
[2022-05-17] MEDS: Apixaban 5 MG TAB PO SCH ×2 (09:27→19:41)
[2022-05-17] MEDS: Divalproex Sodium 125 mg Sprinkle Capsule PO SCH ×3 (09:27→19:41)
[2022-05-17] MEDS: Furosemide 20 MG TAB PO SCH (09:27)
[2022-05-17] MEDS: Amiodarone 200 MG TAB PO SCH (09:27)
[2022-05-17] MEDS: Acetaminophen 500 MG TAB PO PRN ×2 (09:27→19:41)
[2022-05-17] MEDS: Sodium Chloride 0.9% 1,000 ML IV SCH (09:28)
[2022-05-17] MEDS ORDERED: Tamsulosin HCl 0.4 MG CAP PO SCH (10:15)
[2022-05-17] MEDS: OLANZapine 5 MG TAB PO SCH (19:41)
[2022-05-18] MEDS: Sodium Chloride 0.9% 1,000 ML IV SCH ×2 (02:12→12:08)
[2022-05-18] MEDS: Amiodarone 200 MG TAB PO SCH (08:14)
[2022-05-18] MEDS: Apixaban 5 MG TAB PO SCH (08:14)
[2022-05-18] MEDS: Divalproex Sodium 125 mg Sprinkle Capsule PO SCH (08:14)
[2022-05-18] MEDS: Furosemide 20 MG TAB PO SCH (08:14)
[2022-05-18] MEDS: DULoxetine 30 MG CAP PO SCH (08:14)
[2022-05-18] MEDS ORDERED: Tamsulosin HCl 0.4 MG CAP PO SCH (09:00)
[2022-05-18 14:00] VITALS: BP 113/69; TEMP 97.8
== END 2022-05-18 14:10 | DRG 689 ==
LOC: ERS 12:35 → ERHOLD 16:55 → T4-A 19:43
PROVIDERS: ADMIT Internal Medicine; ATTEND Internal Medicine
DX: N13.6 Pyonephrosis (principal); G93.41 Metabolic encephalopathy; Z16.21 Resistance to vancomycin; Z20.822 Contact with and (suspected) exposure to COVID-19; F03.90 Unspecified dementia, unspecified severity, without behavioral disturbance, psychotic disturbance, mood disturbance, and anxiety; E87.6 Hypokalemia; J44.9 Chronic obstructive pulmonary disease, unspecified; K21.9 Gastro-esophageal reflux disease without esophagitis; R33.9 Retention of urine, unspecified; B95.2 Enterococcus as the cause of diseases classified elsewhere; I48.91 Unspecified atrial fibrillation; E78.5 Hyperlipidemia, unspecified; Z78.1 Physical restraint status; Z88.5 Allergy status to narcotic agent; Z88.8 Allergy status to other drugs, medicaments and biological substances; Z88.1 Allergy status to other antibiotic agents; Z91.041 Radiographic dye allergy status; Z79.899 Other long term (current) drug therapy; Z79.82 Long term (current) use of aspirin
CPT/HCPCS: 36415; 36416; 70450; 70496; 70498; 71045; 71250; 74176; 76770; 80048; 80053; 81003; 81015; 84484; 85025; 85610; 85730; 87077; 87086; 87186; 87811; 93005; 94640; 94760; J0360; J0696; J3490; J7050; J7620; Q9967; U0002

== ENCOUNTER 2022-06-20 14:31 | Emergency (ER) | payer MEDICAID, MEDICARE, OTHER ==
[2022-06-20 15:33] LABS: Actual Bicarbonate (HCO3v) 24 mEq/L (22-28); Analyzer IN Cardio ER; Base Excess -0.4 mEq/L (-2.0 to +3.0); Calcium, Ionized (venous) 1.03 mmol/L (1.16-1.32); Chloride (VBG) 106 mmol/L (98-106); Hemoglobin (Hb) 12.3 g/dL (11.7-16.1); Potassium (VBG) 3.84 mmol/L (3.70-5.30); Sodium 141.9 mmol/L (133-146)
[2022-06-20 16:11] LABS: #Eosinphils 0.2 thou/uL (0.0-0.7); #Lymphocytes 2.2 thou/uL (1.20-3.40); #Monocytes 1.2 thou/uL (0.11-0.59); #Neutrophils 8.4 thou/uL (1.40-6.50); %Eosinophils 1.8 % (0.0-10.0); %Lymphocytes 18.3 % (21.0-51.0); %Monocytes 10.3 % (0.0-10.0); %Neutrophils 69.6 % (42.0-75.0); Hemoglobin 11.1 g/dL (12.0-16.0); Mean Corpuscular HGB CONC 31.2 g/dL (32.0-36.0); Mean Corpuscular Hemoglobin 26.5 pg (27.0-31.0); Mean Corpuscular Volume 84.8 fl (78.0-98.0); Mean Platelet Volume 7.3 fL (7.4-10.4); Platelet Count 334 10x3/uL (130-400); RBC Distribution Width 15.3 % (11.5-14.5); Red Blood Cell (RBC) Count 4.17 mill/uL (4.20-5.40); White Blood Cell (WBC) Count 12.1 10x3/uL (4.8-10.8)
[2022-06-20 16:18] LABS: Bacteria/HPF 4+ HPF (None Seen); Bilirubin Negative (Negative); Blood, Urine 1+ (Negative); Clarity Extra Turbid (Clear); Glucose, Urine (Dipstick) Normal (Negative); Ketone, Urine Trace mg/dL (Negative); Leukocyte 500 Leu/uL (Negative); Nitrite Negative (Negative); Protein, Urine (Dipstick) 200 mg/dL (Neg-Trace); Specific Gravity, Urine 1.021 (1.002-1.036); Transitional Epithelial 0-3 HPF (None Seen); Urobilinogen 3 mg/dL (Less than 2); WBC/HPF Greater than 50 HPF (0-3)
[2022-06-20 16:22] LABS: Amphetamine Not Detected (NotDetected); Barbiturates Screen Not Detected (NotDetected); Benzodiazepine Screen Detected (NotDetected); Cocaine Metabolite Screen Not Detected (NotDetected); Methadone Not Detected (NotDetected); Methamphetamine Not Detected (NotDetected); Opiate Screen Not Detected (NotDetected); Oxycodone Screen Not Detected (NotDetected); Phencyclidine (PCP) Not Detected (NotDetected); THC/Cannabinoid Screen Not Detected (NotDetected); Tricyclic Screen Not Detected (NotDetected)
[2022-06-20 16:26] LABS: ALT (SGPT) 12 U/L (8-55); AST (SGOT) 24 U/L (5-34); Acetaminophen Less than 10.0 mcg/mL (10.0-30.0); Albumin 3.4 g/dL (3.4-4.8); Alcohol Less than 10 mg/dL (Less than 10); Alkaline Phosphatase 142 U/L (40-110); Anion Gap 14 mmol/L (10-20); BUN (Urea Nitrogen) 24 mg/dL (9.8-20.1); Bilirubin, Total 0.6 mg/dL (0.2-1.2); Calc. Creatinine Clearance 0 mL/min (70-130); Calcium 8.3 mg/dL (7.8-10.44); Carbon Dioxide 24 mmol/L (23-31); Chloride 106 mmol/L (98-107); Estimated GFR 30; Globulin 3.5 g/dL (2.4-3.5); Glucose 94 mg/dL (83-110); Potassium 3.7 mmol/L (3.5-5.1); Protein, Total 6.9 g/dL (5.8-8.1); Salicylate Less than 8.0 mg/dL (15.0-30.0); Sodium 140 mmol/L (136-145)
[2022-06-20] MEDS ORDERED: Morphine 4 MG/ML VIAL ONE (16:27)
[2022-06-20] MEDS ORDERED: Famotidine/PF 20 mg/2ml Vial ONE (16:27)
[2022-06-20] MEDS ORDERED: methylPREDNISolone Sod Succ 40 MG VIAL ONE (16:27)
[2022-06-20] MEDS ORDERED: diphenhydrAMINE 50 MG/ML VIAL ONE (16:27)
[2022-06-20 16:36] LABS: Squamous Epithelial 0-3 HPF (0-3); Yeast-Hyphae 1+ HPF (None Seen)
[2022-06-20 16:37] LABS: Calcium Oxalate Crystals 3+ HPF (None Seen)
[2022-06-20 16:47] LABS: SARS-CoV-2 NAA Rapid Test Not Detected (NotDetected)
[2022-06-20] MEDS ORDERED: cefTRIAXone\\ROCEPHIN 1 GM VIAL ONE (18:24)
== END 2022-06-20 19:28 ==
LOC: ERS 14:31
DX: N39.0 Urinary tract infection, site not specified (principal); D72.829 Elevated white blood cell count, unspecified; J44.9 Chronic obstructive pulmonary disease, unspecified; K21.9 Gastro-esophageal reflux disease without esophagitis; E78.5 Hyperlipidemia, unspecified; Z20.822 Contact with and (suspected) exposure to COVID-19; Z79.82 Long term (current) use of aspirin; Z79.899 Other long term (current) drug therapy
CPT/HCPCS: 0240U; 70450; 71045; 73502 ×2; 74177; 80053; 80306; 80307; 82805; 83605; 84484; 85025; 87040; 87077; 87086; 93005; 36415; 81003; 81015; 87186; 96374; 96375; J0696; J1200; J2270; J2920; S0028

== ENCOUNTER 2022-07-06 10:24 | Inpatient (IN) | payer OTHER, MEDICAID ==
[2022-07-06 10:50] LABS: Bacteria/HPF 4+ HPF (None Seen); Bilirubin Negative (Negative); Blood, Urine 2+ (Negative); Clarity Extra Turbid (Clear); Glucose, Urine (Dipstick) Normal (Negative); Ketone, Urine Negative (Negative); Leukocyte 500 Leu/uL (Negative); Nitrite Negative (Negative); Protein, Urine (Dipstick) 200 mg/dL (Neg-Trace); RBC/HPF 21-50 HPF (0-3); Specific Gravity, Urine 1.026 (1.002-1.036); Squamous Epithelial 0-3 HPF (0-3); Urobilinogen Normal mg/dL (Less than 2); WBC/HPF Greater than 50 HPF (0-3)
[2022-07-06] MEDS ORDERED: cefTRIAXone\\ROCEPHIN 1 GM VIAL ONE (11:21)
[2022-07-06 11:22] LABS: #Eosinphils 0.2 thou/uL (0.0-0.7); #Lymphocytes 1.7 thou/uL (1.20-3.40); #Monocytes 0.8 thou/uL (0.11-0.59); #Neutrophils 7.1 thou/uL (1.40-6.50); %Basophils 0.2 % (0.0-1.0); %Eosinophils 2.2 % (0.0-10.0); %Lymphocytes 17.4 % (21.0-51.0); %Monocytes 8.5 % (0.0-10.0); %Neutrophils 71.7 % (42.0-75.0); Mean Corpuscular HGB CONC 30.5 g/dL (32.0-36.0); Mean Corpuscular Hemoglobin 25.6 pg (27.0-31.0); Mean Platelet Volume 7.7 fL (7.4-10.4); Platelet Count 258 10x3/uL (130-400); RBC Distribution Width 15.7 % (11.5-14.5); Red Blood Cell (RBC) Count 4.29 mill/uL (4.20-5.40); White Blood Cell (WBC) Count 9.9 10x3/uL (4.8-10.8)
[2022-07-06 11:41] LABS: ALT (SGPT) Less than 7 U/L (8-55); AST (SGOT) 10 U/L (5-34); Albumin 3.1 g/dL (3.4-4.8); Alkaline Phosphatase 126 U/L (40-110); Anion Gap 15 mmol/L (10-20); BUN (Urea Nitrogen) 17 mg/dL (9.8-20.1); Bilirubin, Total 0.4 mg/dL (0.2-1.2); Calc. Creatinine Clearance 0 mL/min (70-130); Calcium 8.4 mg/dL (7.8-10.44); Carbon Dioxide 26 mmol/L (23-31); Chloride 105 mmol/L (98-107); Estimated GFR 56; Globulin 3.4 g/dL (2.4-3.5); Glucose 177 mg/dL (83-110); Potassium 3.6 mmol/L (3.5-5.1); Protein, Total 6.5 g/dL (5.8-8.1); Sodium 142 mmol/L (136-145)
[2022-07-06 14:21] LABS: Lactic Acid 1.9 mmol/L (0.5-2.2)
[2022-07-06] MEDS ORDERED: Dextrose 5% in Water 1,000 ML IV PRN (14:49)
[2022-07-06] MEDS ORDERED: HumaLOG 300 UNITS/3 ML VIAL SC PRN ×2 (14:49)
[2022-07-06] MEDS ORDERED: Dextrose 50% Abboject 50 ML SYRINGE SLOW IVP PRN (14:49)
[2022-07-06] MEDS ORDERED: Ondansetron PF 4 MG/2 ML Vial IVP PRN (14:52)
[2022-07-06] MEDS ORDERED: Senokot S 8.6-50 MG TAB PO PRN (14:52)
[2022-07-06] MEDS ORDERED: Ondansetron ODT 4 MG TAB PO PRN (14:52)
[2022-07-06 15:25] LABS: SARS-CoV-2 NAA Rapid Test Not Detected (NotDetected)
[2022-07-06] MEDS ORDERED: Ipratropium/Albuterol 3 ML NEB NEB PRN ×2 (16:50→17:04)
[2022-07-06] MEDS ORDERED: traMADol HCl 50 MG TAB PO PRN (17:04)
[2022-07-06] MEDS: Atorvastatin Calcium 40 MG TAB PO SCH (20:03)
[2022-07-06] MEDS: Divalproex Sodium 125 mg Sprinkle Capsule PO SCH (20:04)
[2022-07-06] MEDS: Ezetimibe 10 MG TAB PO SCH (20:04)
[2022-07-06] MEDS: Gabapentin 300 MG CAP PO SCH (20:04)
[2022-07-06] MEDS: OLANZapine 5 MG TAB PO SCH (20:04)
[2022-07-06] MEDS: Sodium Chloride 0.9% 1,000 ML IV SCH (20:14)
[2022-07-06 20:16] VITALS: BMI 23.6
[2022-07-07] MEDS: Sodium Chloride 0.9% 1,000 ML IV SCH (06:14)
[2022-07-07] MEDS: DULoxetine 60 MG CAP PO SCH (08:49)
[2022-07-07] MEDS: Lorazepam 0.5 MG TAB PO SCH (08:49)
[2022-07-07] MEDS: Divalproex Sodium 125 mg Sprinkle Capsule PO SCH ×2 (08:49→20:43)
[2022-07-07] MEDS: Gabapentin 300 MG CAP PO SCH ×2 (08:49→20:42)
[2022-07-07] MEDS: Aspirin 81 mg Enteric Coated Tablet PO SCH (08:49)
[2022-07-07 11:45] LABS: #Eosinphils 0.2 thou/uL (0.0-0.7); #Lymphocytes 1.4 thou/uL (1.20-3.40); #Monocytes 0.7 thou/uL (0.11-0.59); #Neutrophils 5.1 thou/uL (1.40-6.50); %Basophils 0.2 % (0.0-1.0); %Eosinophils 2.5 % (0.0-10.0); %Lymphocytes 18.6 % (21.0-51.0); %Monocytes 9.5 % (0.0-10.0); %Neutrophils 69.1 % (42.0-75.0); Hemoglobin 11.2 g/dL (12.0-16.0); Mean Corpuscular HGB CONC 30.2 g/dL (32.0-36.0); Mean Corpuscular Hemoglobin 25.8 pg (27.0-31.0); Mean Corpuscular Volume 85.4 fl (78.0-98.0); Mean Platelet Volume 7.4 fL (7.4-10.4); Platelet Count 260 10x3/uL (130-400); RBC Distribution Width 15.3 % (11.5-14.5); Red Blood Cell (RBC) Count 4.34 mill/uL (4.20-5.40); White Blood Cell (WBC) Count 7.4 10x3/uL (4.8-10.8)
[2022-07-07 11:46] LABS: Anion Gap 14 mmol/L (10-20); BUN (Urea Nitrogen) 9 mg/dL (9.8-20.1); Calc. Creatinine Clearance 65 mL/min (70-130); Calcium 8.6 mg/dL (7.8-10.44); Carbon Dioxide 23 mmol/L (23-31); Chloride 105 mmol/L (98-107); Estimated GFR 88; Glucose 138 mg/dL (83-110); Potassium 3.6 mmol/L (3.5-5.1); Sodium 138 mmol/L (136-145)
[2022-07-07] MEDS: cefTRIAXone\\ROCEPHIN 1 GM in Sodium Chloride 0.9% 100 ML IVPB SCH (12:55)
[2022-07-07] MEDS: OLANZapine 5 MG TAB PO SCH (20:39)
[2022-07-07] MEDS: Ezetimibe 10 MG TAB PO SCH (20:39)
[2022-07-07] MEDS: Atorvastatin Calcium 40 MG TAB PO SCH (20:43)
[2022-07-08 06:43] LABS: Anion Gap 11 mmol/L (10-20); BUN (Urea Nitrogen) 8 mg/dL (9.8-20.1); Calc. Creatinine Clearance 69 mL/min (70-130); Calcium 8.4 mg/dL (7.8-10.44); Carbon Dioxide 24 mmol/L (23-31); Chloride 105 mmol/L (98-107); Estimated GFR 90; Glucose 95 mg/dL (83-110); Potassium 3.3 mmol/L (3.5-5.1); Sodium 137 mmol/L (136-145)
[2022-07-08 07:55] LABS: Band 1 % (5-11); Eosinophils 1 % (0-10); Hemoglobin 9.8 g/dL (12.0-16.0); Lymphocytes 28 % (21-51); MDiff Complete? YES; Mean Corpuscular HGB CONC 31.1 g/dL (32.0-36.0); Mean Corpuscular Hemoglobin 26.4 pg (27.0-31.0); Mean Corpuscular Volume 84.7 fl (78.0-98.0); Mean Platelet Volume 7.3 fL (7.4-10.4); Monocytes 15 % (0-10); Myelocyte 1 % (0-0); Neutrophil 54 % (42-75); Platelet Count 230 10x3/uL (130-400); Platelet Morphology Comment Appears Adequate; Polychromasia SLIGHT = 2-3 cells (100X) (0-2/hpf); Red Blood Cell (RBC) Count 3.73 mill/uL (4.20-5.40); White Blood Cell (WBC) Count 6.8 10x3/uL (4.8-10.8)
[2022-07-08] MEDS: Divalproex Sodium 125 mg Sprinkle Capsule PO SCH ×2 (09:57→20:57)
[2022-07-08] MEDS: Gabapentin 300 MG CAP PO SCH ×2 (09:57→20:57)
[2022-07-08] MEDS: DULoxetine 60 MG CAP PO SCH (09:57)
[2022-07-08] MEDS: Lorazepam 0.5 MG TAB PO SCH (09:57)
[2022-07-08] MEDS: Aspirin 81 mg Enteric Coated Tablet PO SCH (09:57)
[2022-07-08] MEDS: Amlodipine 5 MG TAB PO SCH (09:58)
[2022-07-08] MEDS: cefTRIAXone\\ROCEPHIN 1 GM in Sodium Chloride 0.9% 100 ML IVPB SCH (13:37)
[2022-07-08] MEDS: Ezetimibe 10 MG TAB PO SCH (20:57)
[2022-07-08] MEDS: OLANZapine 5 MG TAB PO SCH (20:57)
[2022-07-08] MEDS: Atorvastatin Calcium 40 MG TAB PO SCH (20:57)
[2022-07-09 06:19] LABS: #Eosinphils 0.3 thou/uL (0.0-0.7); #Lymphocytes 1.5 thou/uL (1.20-3.40); #Monocytes 0.6 thou/uL (0.11-0.59); #Neutrophils 3.7 thou/uL (1.40-6.50); %Basophils 0.6 % (0.0-1.0); %Eosinophils 4.7 % (0.0-10.0); %Lymphocytes 24.2 % (21.0-51.0); %Monocytes 9.1 % (0.0-10.0); %Neutrophils 61.3 % (42.0-75.0); Hemoglobin 10.9 g/dL (12.0-16.0); Mean Corpuscular Hemoglobin 26.1 pg (27.0-31.0); Mean Corpuscular Volume 84.3 fl (78.0-98.0); Mean Platelet Volume 6.7 fL (7.4-10.4); Platelet Count 293 10x3/uL (130-400); RBC Distribution Width 14.9 % (11.5-14.5); Red Blood Cell (RBC) Count 4.16 mill/uL (4.20-5.40)
[2022-07-09 06:39] LABS: Anion Gap 12 mmol/L (10-20); BUN (Urea Nitrogen) 8 mg/dL (9.8-20.1); Calc. Creatinine Clearance 67 mL/min (70-130); Calcium 8.5 mg/dL (7.8-10.44); Carbon Dioxide 25 mmol/L (23-31); Chloride 104 mmol/L (98-107); Estimated GFR 89; Glucose 96 mg/dL (83-110); Potassium 3.2 mmol/L (3.5-5.1); Sodium 138 mmol/L (136-145)
[2022-07-09] MEDS: Aspirin 81 mg Enteric Coated Tablet PO SCH (09:24)
[2022-07-09] MEDS: Amlodipine 5 MG TAB PO SCH (09:25)
[2022-07-09] MEDS: Lorazepam 0.5 MG TAB PO SCH (09:25)
[2022-07-09] MEDS: Gabapentin 300 MG CAP PO SCH (09:25)
[2022-07-09] MEDS: DULoxetine 60 MG CAP PO SCH (09:25)
[2022-07-09] MEDS: Divalproex Sodium 125 mg Sprinkle Capsule PO SCH (09:25)
[2022-07-09] MEDS ORDERED: Potassium Chloride 20 MEQ TAB PO SCH (09:45)
[2022-07-09] MEDS: cefTRIAXone\\ROCEPHIN 1 GM in Sodium Chloride 0.9% 100 ML IVPB SCH (12:02)
[2022-07-09 16:08] VITALS: BP 134/72; TEMP 97.6
== END 2022-07-09 16:30 | DRG 698 ==
LOC: ERS 10:24 → ERHOLD 12:53 → T4-B 17:23
PROVIDERS: ADMIT Family Medicine; ATTEND Internal Medicine
PROC: 0T2BX0Z Change Drainage Device in Bladder, External Approach (ICD-10-PCS; principal; 2022-07-06)
DX: T83.511A Infection and inflammatory reaction due to indwelling urethral catheter, initial encounter (principal); A41.52 Sepsis due to Pseudomonas; A41.81 Sepsis due to Enterococcus; A41.89 Other specified sepsis; I48.20 Chronic atrial fibrillation, unspecified; T83.011A Breakdown (mechanical) of indwelling urethral catheter, initial encounter; F03.90 Unspecified dementia, unspecified severity, without behavioral disturbance, psychotic disturbance, mood disturbance, and anxiety; J44.9 Chronic obstructive pulmonary disease, unspecified; R13.10 Dysphagia, unspecified; I10 Essential (primary) hypertension; E11.9 Type 2 diabetes mellitus without complications; R33.9 Retention of urine, unspecified; E78.5 Hyperlipidemia, unspecified; F41.9 Anxiety disorder, unspecified; F32.A Depression, unspecified; Z66 Do not resuscitate; T83.091A Other mechanical complication of indwelling urethral catheter, initial encounter; K21.9 Gastro-esophageal reflux disease without esophagitis; Z86.73 Personal history of transient ischemic attack (TIA), and cerebral infarction without residual deficits; Z88.5 Allergy status to narcotic agent; Z88.8 Allergy status to other drugs, medicaments and biological substances; Z79.82 Long term (current) use of aspirin; Z79.899 Other long term (current) drug therapy; Z98.890 Other specified postprocedural states; Z90.710 Acquired absence of both cervix and uterus; Z90.49 Acquired absence of other specified parts of digestive tract; Z98.49 Cataract extraction status, unspecified eye; Z20.822 Contact with and (suspected) exposure to COVID-19; Y84.6 Urinary catheterization as the cause of abnormal reaction of the patient, or of later complication, without mention of misadventure at the time of the procedure
CPT/HCPCS: 36415; 36416; 51702; 70450; 71045; 80048; 80053; 81003; 81015; 83605; 84484; 85025; 87086; 93005; 96365; 97139; J0696; J0744; J3490; J7050; U0002

== ENCOUNTER 2022-07-20 12:08 | Inpatient (IN) | payer OTHER, MEDICAID ==
[2022-07-20] MEDS ORDERED: cefTRIAXone\\ROCEPHIN 1 GM VIAL ONE (12:50)
[2022-07-20] MEDS ORDERED: Sodium Chloride 0.9% 100 ML ONE (12:50)
[2022-07-20 12:56] LABS: Bilirubin Negative (Negative); Blood, Urine Trace (Negative); Clarity Turbid (Clear); Glucose, Urine (Dipstick) Normal (Negative); Ketone, Urine Negative (Negative); Leukocyte 500 Leu/uL (Negative); Nitrite Negative (Negative); Protein, Urine (Dipstick) 30 mg/dL (Neg-Trace); Specific Gravity, Urine 1.015 (1.002-1.036); Urobilinogen Normal mg/dL (Less than 2); pH, Urine 7.5 (5.0-9.0)
[2022-07-20 13:07] LABS: Bacteria/HPF 1+ HPF (None Seen)
[2022-07-20 13:08] LABS: Squamous Epithelial 0-3 HPF (0-3); WBC/HPF 21-50 HPF (0-3)
[2022-07-20 13:17] LABS: #Basophils 0.1 thou/uL (0.0-0.2); #Eosinphils 0.3 thou/uL (0.0-0.7); #Lymphocytes 1.7 thou/uL (1.20-3.40); #Monocytes 0.8 thou/uL (0.11-0.59); #Neutrophils 5.1 thou/uL (1.40-6.50); %Eosinophils 3.3 % (0.0-10.0); %Lymphocytes 21.5 % (21.0-51.0); %Monocytes 10.1 % (0.0-10.0); %Neutrophils 64.2 % (42.0-75.0); Hemoglobin 11.1 g/dL (12.0-16.0); Mean Corpuscular HGB CONC 29.2 g/dL (32.0-36.0); Mean Corpuscular Hemoglobin 26.2 pg (27.0-31.0); Mean Corpuscular Volume 89.8 fl (78.0-98.0); Mean Platelet Volume 7.2 fL (7.4-10.4); Platelet Count 334 10x3/uL (130-400); RBC Distribution Width 15.9 % (11.5-14.5); Red Blood Cell (RBC) Count 4.23 mill/uL (4.20-5.40)
[2022-07-20 13:40] LABS: ALT (SGPT) Less than 7 U/L (8-55); AST (SGOT) 13 U/L (5-34); Albumin 3.2 g/dL (3.4-4.8); Alkaline Phosphatase 110 U/L (40-110); Anion Gap 13 mmol/L (10-20); BUN (Urea Nitrogen) 11 mg/dL (9.8-20.1); Bilirubin, Total 0.3 mg/dL (0.2-1.2); Calc. Creatinine Clearance 0 mL/min (70-130); Calcium 8.6 mg/dL (7.8-10.44); Carbon Dioxide 23 mmol/L (23-31); Chloride 110 mmol/L (98-107); Estimated GFR 60; Globulin 4.8 g/dL (2.4-3.5); Glucose 174 mg/dL (83-110); Lipase 10 U/L (8-78); Potassium 3.4 mmol/L (3.5-5.1); Sodium 143 mmol/L (136-145)
[2022-07-20 14:20] LABS: SARS-CoV-2 NAA Rapid Test Not Detected (NotDetected)
[2022-07-20] MEDS ORDERED: Vancomycin 1 GM/200 ML (FROZEN) BAG ONE (15:10)
[2022-07-20 16:23] LABS: Lactic Acid 2.4 mmol/L (0.5-2.2)
[2022-07-20 18:29] VITALS: BMI 23.4
[2022-07-20] MEDS ORDERED: Ondansetron PF 4 MG/2 ML Vial IVP PRN (19:33)
[2022-07-20] MEDS ORDERED: Ondansetron ODT 4 MG TAB PO PRN (19:33)
[2022-07-20] MEDS ORDERED: Dextrose 5% in Water 1,000 ML IV PRN (19:33)
[2022-07-20] MEDS ORDERED: HumaLOG 300 UNITS/3 ML VIAL SC PRN ×2 (19:33)
[2022-07-20] MEDS ORDERED: Senokot S 8.6-50 MG TAB PO PRN (19:33)
[2022-07-20] MEDS ORDERED: Dextrose 50% Abboject 50 ML SYRINGE SLOW IVP PRN (19:33)
[2022-07-20] MEDS ORDERED: Sodium Chloride 0.9% 1,000 ML IV SCH (20:30)
[2022-07-20] MEDS ORDERED: Vancomycin 1 GM in Premix Bag 1 BAG IVPB SCH (20:30)
[2022-07-20] MEDS: Divalproex Sodium 125 mg Sprinkle Capsule PO SCH (20:58)
[2022-07-20] MEDS: Atorvastatin Calcium 40 MG TAB PO SCH (20:58)
[2022-07-21 07:27] LABS: Anion Gap 15 mmol/L (10-20); BUN (Urea Nitrogen) 6 mg/dL (9.8-20.1); Calc. Creatinine Clearance 66 mL/min (70-130); Calcium 8.4 mg/dL (7.8-10.44); Carbon Dioxide 19 mmol/L (23-31); Chloride 108 mmol/L (98-107); Estimated GFR 87; Glucose 87 mg/dL (83-110); Potassium 3.2 mmol/L (3.5-5.1); Sodium 139 mmol/L (136-145)
[2022-07-21 07:37] LABS: Hemoglobin 10.6 g/dL (12.0-16.0); Mean Corpuscular HGB CONC 29.8 g/dL (32.0-36.0); Mean Corpuscular Hemoglobin 25.6 pg (27.0-31.0); Mean Corpuscular Volume 85.7 fl (78.0-98.0); Mean Platelet Volume 7.8 fL (7.4-10.4); Platelet Count 270 10x3/uL (130-400); RBC Distribution Width 15.6 % (11.5-14.5); Red Blood Cell (RBC) Count 4.14 mill/uL (4.20-5.40); White Blood Cell (WBC) Count 5.8 10x3/uL (4.8-10.8)
[2022-07-21 07:38] LABS: #Eosinphils 0.4 thou/uL (0.0-0.7); #Lymphocytes 1.5 thou/uL (1.20-3.40); #Monocytes 0.5 thou/uL (0.11-0.59); #Neutrophils 3.4 thou/uL (1.40-6.50); %Basophils 0.8 % (0.0-1.0); %Eosinophils 7.4 % (0.0-10.0); %Lymphocytes 25.9 % (21.0-51.0); %Monocytes 7.8 % (0.0-10.0); %Neutrophils 58.1 % (42.0-75.0)
[2022-07-21 08:33] LABS: MDiff Complete? YES; Platelet Morphology Comment Appears Adequate; Polychromasia SLIGHT = 2-3 cells (100X) (0-2/hpf)
[2022-07-21] MEDS: Aspirin 81 mg Enteric Coated Tablet PO SCH (09:47)
[2022-07-21] MEDS: Divalproex Sodium 125 mg Sprinkle Capsule PO SCH ×2 (09:48→20:38)
[2022-07-21] MEDS: DULoxetine 60 MG CAP PO SCH (09:49)
[2022-07-21] MEDS: Amiodarone 200 MG TAB PO SCH (09:49)
[2022-07-21] MEDS: Amlodipine 5 MG TAB PO SCH (09:52)
[2022-07-21] MEDS ORDERED: VANCOMYCIN 1.25 GM/250 ML BAG 1.25 GM in Premix Bag 1 BAG IVPB SCH (10:00)
[2022-07-21] MEDS ORDERED: Potassium Chloride 20 MEQ TAB PO SCH (11:15)
[2022-07-21] MEDS ORDERED: Fluconazole 100 MG TAB PO SCH (13:30)
[2022-07-21] MEDS ORDERED: cefTRIAXone\\ROCEPHIN 1 GM in Sodium Chloride 0.9% 100 ML IVPB SCH (14:00)
[2022-07-21] MEDS: Acetaminophen 325 MG TAB PO PRN ×2 (15:06→20:38)
[2022-07-21] MEDS: Atorvastatin Calcium 40 MG TAB PO SCH (20:38)
[2022-07-21] MEDS: Ezetimibe 10 MG TAB PO SCH (20:38)
[2022-07-22 07:18] LABS: #Eosinphils 0.3 thou/uL (0.0-0.7); #Lymphocytes 1.9 thou/uL (1.20-3.40); #Monocytes 0.6 thou/uL (0.11-0.59); #Neutrophils 3.4 thou/uL (1.40-6.50); %Basophils 0.3 % (0.0-1.0); %Eosinophils 4.5 % (0.0-10.0); %Lymphocytes 30.8 % (21.0-51.0); %Monocytes 9.7 % (0.0-10.0); %Neutrophils 54.8 % (42.0-75.0); Hemoglobin 11.2 g/dL (12.0-16.0); Mean Corpuscular HGB CONC 30.7 g/dL (32.0-36.0); Mean Corpuscular Hemoglobin 25.9 pg (27.0-31.0); Mean Corpuscular Volume 84.2 fl (78.0-98.0); Mean Platelet Volume 6.7 fL (7.4-10.4); Platelet Count 311 10x3/uL (130-400); RBC Distribution Width 15.6 % (11.5-14.5); Red Blood Cell (RBC) Count 4.32 mill/uL (4.20-5.40); White Blood Cell (WBC) Count 6.3 10x3/uL (4.8-10.8)
[2022-07-22 07:19] LABS: Anion Gap 13 mmol/L (10-20); BUN (Urea Nitrogen) 8 mg/dL (9.8-20.1); Calc. Creatinine Clearance 62 mL/min (70-130); Calcium 8.4 mg/dL (7.8-10.44); Carbon Dioxide 23 mmol/L (23-31); Chloride 106 mmol/L (98-107); Estimated GFR 81; Glucose 90 mg/dL (83-110); Potassium 3.5 mmol/L (3.5-5.1); Sodium 138 mmol/L (136-145)
[2022-07-22] MEDS: Aspirin 81 mg Enteric Coated Tablet PO SCH (08:46)
[2022-07-22] MEDS: Divalproex Sodium 125 mg Sprinkle Capsule PO SCH ×2 (08:46→20:48)
[2022-07-22] MEDS: Amiodarone 200 MG TAB PO SCH (08:46)
[2022-07-22] MEDS: Fluconazole 100 MG TAB PO SCH (08:47)
[2022-07-22] MEDS: Amlodipine 5 MG TAB PO SCH (08:47)
[2022-07-22] MEDS: DULoxetine 60 MG CAP PO SCH (08:47)
[2022-07-22 09:36] LABS: Vancomycin, Trough 14.8 ug/mL
[2022-07-22] MEDS: Ezetimibe 10 MG TAB PO SCH (20:48)
[2022-07-22] MEDS: Atorvastatin Calcium 40 MG TAB PO SCH (20:48)
[2022-07-23 07:03] LABS: #Eosinphils 0.2 thou/uL (0.0-0.7); #Lymphocytes 1.3 thou/uL (1.20-3.40); #Monocytes 0.6 thou/uL (0.11-0.59); #Neutrophils 4.9 thou/uL (1.40-6.50); %Basophils 0.5 % (0.0-1.0); %Eosinophils 2.4 % (0.0-10.0); %Lymphocytes 18.7 % (21.0-51.0); %Monocytes 8.3 % (0.0-10.0); Hemoglobin 11.3 g/dL (12.0-16.0); Mean Corpuscular HGB CONC 31.4 g/dL (32.0-36.0); Mean Corpuscular Hemoglobin 26.2 pg (27.0-31.0); Mean Corpuscular Volume 83.3 fl (78.0-98.0); Mean Platelet Volume 6.9 fL (7.4-10.4); Platelet Count 310 10x3/uL (130-400); RBC Distribution Width 15.4 % (11.5-14.5)
[2022-07-23 07:26] LABS: Anion Gap 13 mmol/L (10-20); BUN (Urea Nitrogen) 8 mg/dL (9.8-20.1); Calc. Creatinine Clearance 60 mL/min (70-130); Calcium 8.5 mg/dL (7.8-10.44); Carbon Dioxide 22 mmol/L (23-31); Chloride 105 mmol/L (98-107); Estimated GFR 78; Glucose 96 mg/dL (83-110); Potassium 3.5 mmol/L (3.5-5.1); Sodium 136 mmol/L (136-145)
[2022-07-23] MEDS ORDERED: Amlodipine 5 MG TAB PO SCH (08:14)
[2022-07-23] MEDS: DULoxetine 60 MG CAP PO SCH (09:32)
[2022-07-23] MEDS: Fluconazole 100 MG TAB PO SCH (09:33)
[2022-07-23] MEDS: Divalproex Sodium 125 mg Sprinkle Capsule PO SCH ×2 (09:33→21:05)
[2022-07-23] MEDS: Aspirin 81 mg Enteric Coated Tablet PO SCH (09:33)
[2022-07-23] MEDS: Amiodarone 200 MG TAB PO SCH (09:33)
[2022-07-23] MEDS: Amlodipine 10 MG TAB PO SCH (09:39)
[2022-07-23] MEDS: Ezetimibe 10 MG TAB PO SCH (21:05)
[2022-07-23] MEDS: Atorvastatin Calcium 40 MG TAB PO SCH (21:05)
[2022-07-24 06:28] LABS: Anion Gap 17 mmol/L (10-20); BUN (Urea Nitrogen) 12 mg/dL (9.8-20.1); Calc. Creatinine Clearance 53 mL/min (70-130); Calcium 8.8 mg/dL (7.8-10.44); Carbon Dioxide 18 mmol/L (23-31); Chloride 107 mmol/L (98-107); Estimated GFR 67; Glucose 112 mg/dL (83-110); Potassium 3.7 mmol/L (3.5-5.1); Sodium 138 mmol/L (136-145)
[2022-07-24 06:29] LABS: #Eosinphils 0.1 thou/uL (0.0-0.7); #Lymphocytes 1.5 thou/uL (1.20-3.40); #Monocytes 0.9 thou/uL (0.11-0.59); #Neutrophils 8.8 thou/uL (1.40-6.50); %Basophils 0.1 % (0.0-1.0); %Eosinophils 0.8 % (0.0-10.0); %Lymphocytes 13.5 % (21.0-51.0); %Neutrophils 77.6 % (42.0-75.0); Hemoglobin 11.2 g/dL (12.0-16.0); Mean Corpuscular HGB CONC 31.6 g/dL (32.0-36.0); Mean Corpuscular Hemoglobin 25.9 pg (27.0-31.0); Mean Corpuscular Volume 82.2 fl (78.0-98.0); Mean Platelet Volume 7.1 fL (7.4-10.4); Platelet Count 352 10x3/uL (130-400); RBC Distribution Width 16.2 % (11.5-14.5); Red Blood Cell (RBC) Count 4.31 mill/uL (4.20-5.40); White Blood Cell (WBC) Count 11.4 10x3/uL (4.8-10.8)
[2022-07-24] MEDS: DULoxetine 60 MG CAP PO SCH (08:50)
[2022-07-24] MEDS: Amlodipine 10 MG TAB PO SCH (08:50)
[2022-07-24] MEDS: Amiodarone 200 MG TAB PO SCH (08:51)
[2022-07-24] MEDS: Aspirin 81 mg Enteric Coated Tablet PO SCH (08:51)
[2022-07-24] MEDS: Fluconazole 100 MG TAB PO SCH (08:51)
[2022-07-24] MEDS: Divalproex Sodium 125 mg Sprinkle Capsule PO SCH (08:51)
[2022-07-24] MEDS ORDERED: Lansoprazole 15 MG/5 ML (BATCHED)UDCUP PO SCH (09:00)
[2022-07-24] MEDS ORDERED: Senokot S 8.6-50 MG TAB PO PRN (10:30)
[2022-07-24 18:23] VITALS: BP 120/64; TEMP 98.3
== END 2022-07-24 10:42 | DRG 871 ==
LOC: ERS 12:08 → ERHOLD 15:06 → T4-A 18:17
PROVIDERS: ADMIT Family Medicine; ATTEND Internal Medicine
DX: B37.7 Candidal sepsis (principal); G93.41 Metabolic encephalopathy; E87.20 Acidosis, unspecified; I48.20 Chronic atrial fibrillation, unspecified; B37.49 Other urogenital candidiasis; E78.5 Hyperlipidemia, unspecified; J44.9 Chronic obstructive pulmonary disease, unspecified; F03.90 Unspecified dementia, unspecified severity, without behavioral disturbance, psychotic disturbance, mood disturbance, and anxiety; F41.9 Anxiety disorder, unspecified; F32.A Depression, unspecified; R13.12 Dysphagia, oropharyngeal phase; L89.152 Pressure ulcer of sacral region, stage 2; L89.312 Pressure ulcer of right buttock, stage 2; Z90.49 Acquired absence of other specified parts of digestive tract; Z87.440 Personal history of urinary (tract) infections; Z90.710 Acquired absence of both cervix and uterus; Z79.899 Other long term (current) drug therapy; Z88.5 Allergy status to narcotic agent; Z88.8 Allergy status to other drugs, medicaments and biological substances; Z91.041 Radiographic dye allergy status; Z79.51 Long term (current) use of inhaled steroids; Z79.82 Long term (current) use of aspirin
CPT/HCPCS: 36415; 36416; 70450; 71045; 74176; 80048; 80053; 80202; 81003; 83605; 83690; 83735; 85025; 87040; 87086; 93005; 96365; 96367; 97139; J0696; J1815; J3370; J3370-JW; J3490; J7050; U0002